=== PATIENT | female | born 1960 | race Two or more races ===

== ENCOUNTER 2020-01-27 15:55 | Inpatient (IN) | payer BC ==
[2020-01-27] MEDS ORDERED: SODIUM CHLORIDE 0.9% 1,000 ML IV STA ×2 (16:06)
[2020-01-27] MEDS ORDERED: ACETAMINOPHEN TAB 500 MG TAB PO STA (16:15)
--- NOTE | 2020-01-27 16:16 | ED ---
Chest Pain HPI - General Stated Complaint: CHEST PAIN Time Seen by Provider: 01/27/20 15:57 Source: RN notes reviewed, old records reviewed - History of Present Illness Initial Comments: Patient is a 39-year-old female who presents emergency department today for evaluation with chief complaint of chest pain starting this morning. She reports it feels a heaviness on her chest, and describes "elephant sitting on me". 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 She reports that she also noticed that over the past weekend she did have a runny nose and was feeling somewhat more short of breath. She states that she thought her no right runny nose which is related to ALLERGIES from working in the yard. She denies any significant coughing. She reports no fevers. She states that over the week she felt fatigued. She reports that she has no personal cardiac history. Patient reports that she was at work today and mentioned that she's having chest pain and was evaluated. She reports that they did an EKG which did show some abnormalities. Patient reports that she was given 2 nitro and did feel some relief with second nitro as well as 4 baby aspirin. Her blood pressure was elevated at that time 190/90. Patient states that she has had no previous stress test or cardiac workup completed. - Related Data Home Medications Medication Instructions Recorded Confirmed Cholecalciferol [Vitamin D3 (25 5,000 unit PO DAILY 01/27/20 01/27/20 Mcg = 1000 Iu)] Gabapentin [Neurontin] 300 mg PO HS 01/27/20 01/27/20 Ibuprofen [Motrin Ib] 800 mg PO Q8H PRN 01/27/20 01/27/20 Levocetirizine Dihydrochloride 5 mg PO DAILY 01/27/20 01/27/20 [Xyzal] Levothyroxine Sodium [Synthroid] 50 mcg PO DAILY 01/27/20 01/27/20 Multivitamins, Thera [Multivitamin 1 tab PO DAILY 01/27/20 01/27/20 (formulary)] hydroCHLOROthiazide [Hydrodiuril] 25 mg PO DAILY 01/27/20 01/27/20 Allergies Allergy/AdvReac Type Severity Reaction Status Date / Time acetaminophen [From Lortab] Allergy Swelling Verified 01/27/20 18:16 hydrocodone [From Vicodin] Allergy Swelling Verified 01/27/20 18:16 hydromorphone [From Dilaudid] Allergy Swelling Verified 01/27/20 18:16 Iodinated Contrast Media Allergy Anaphylaxis Verified 01/27/20 18:16 nitrofurantoin Allergy Unknown Verified 01/27/20 18:16 [From Macrobid] propoxyphene Allergy Swelling Verified 01/27/20 18:16 [From Darvocet-N] tramadol [From Ultracet] Allergy Swelling Verified 01/27/20 18:16 celecoxib [From Celebrex] AdvReac Hallucinati Verified 01/27/20 18:16 ons methyldopa [From Aldomet] AdvReac Unknown Verified 01/27/20 18:16 Review of Systems ROS Statement: Those systems with pertinent positive or pertinent negative responses have been documented in the HPI. ROS Other: All systems not noted in ROS Statement are negative. EKG Findings - EKG Comments: EKG Findings:: EKG shows normal sinus rhythm ST and T wave abnormality consider lateral ischemia. Prolonged QT. Abnormal EKG. Ventricular rate of 78 bpm. NC interval is 180 ms. QRS duration is 100 ms. QT QTc is 428/487 ms. General Exam - General Exam Comments Initial Comments: This is a very pleasant 59-year-old female. General appearance: alert, in no apparent distress Head exam: Present: atraumatic, normocephalic, normal inspection Eye exam: Present: normal appearance, PERRL, EOMI. Absent: scleral icterus, conjunctival injection, periorbital swelling ENT exam: Present: normal exam, mucous membranes moist Neck exam: Present: normal inspection. Absent: tenderness, meningismus, lymphadenopathy Respiratory exam: Present: normal lung sounds bilaterally. Absent: respiratory distress, wheezes, rales, rhonchi, stridor Cardiovascular Exam: Present: regular rate, normal rhythm, normal heart sounds. Absent: systolic murmur, diastolic murmur, rubs, gallop, clicks GI/Abdominal exam: Present: soft, normal bowel sounds. Absent: distended, tenderness, guarding, rebound, rigid Extremities exam: Present: normal inspection, full ROM, normal capillary refill. Absent: tenderness, pedal edema, joint swelling, calf tenderness Back exam: Present: normal inspection Course Vital Signs 01/27/20 01/27/20 01/27/20 16:00 17:00 17:30 Temperature 102.2 F H Pulse Rate 81 81 76 Respiratory 18 18 18 Rate Blood Pressure 141/65 141/65 138/72 O2 Sat by Pulse 97 97 96 Oximetry - Reevaluation(s) Reevaluation #1: 01/27/20 17:38 Repeat EKG performed at 1730 showed normal sinus rhythm with ventricular pressure free and repolarization abnormality. Abnormal EKG. Ventricular rate of 78 bpm. Verbal is 178 ms. QRS duration is 12 ms. QT QTC 396/451 ms. Chest Pain MDM - MDM Patient is a 59-year-old female who presents the emergency department today with complaints of chest pain and heaviness on her chest today. 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 Patient came to emergency department today with complaints of chest pain was given nitro did report minimal relief. She has not had a fever of 102 upon arrival. She reports no history of fever this week. At this time Patient had chest pain and covid work up. Chest x-ray shows borderline heart size. Patchy peripheral opacities right greater than left. Atypical/covert pneumonia not excluded. Patient had normal troponin. She did have positive inflammatory markers including positive d-dimer. With EKG there was some inversions on the lateral leads. With patient's history of chest discomfort and presumed diagnosis of covid discussed admission. Multifocal bilateral peripheral scattered heretofore ill-defined groundglass opacities associated with ill-defined interstitial indistinctness and intralobar septal thickening. Pattern in both upper and lower and mid lung zones. Involves an approximately quarter of the pulmonary parenchyma this time. No evidence or bony edema. Pleural Spaces are negative. Mediastinum shows no CT evidence for pulmonary embolism. Aorta was unremarkable. Overall impression is negative for pulmonary embolism. Bilateral pulmonary findings as described. Disposition Clinical Impression: Chest pain, Infiltrate noted on imaging study, Suspected COVID-19 virus infection Disposition: ADMITTED IP TO THIS HOSP Is patient prescribed a controlled substance at d/c from ED?: No Time of Disposition: 17:33
[2020-01-27 16:37] LABS: Basophils # (A) 0.1 k/uL (0-0.2); Basophils % (A) 1 %; Eosinophils % (A) 1 %; HCT 35.5 % (34.0-46.0); HGB 11.4 gm/dL (11.4-16.0); Lymphocytes # (A) 1.1 k/uL (1.0-4.8); Lymphocytes % (A) 25 %; MCH 28.9 pg (25.0-35.0); MCHC 32.2 g/dL (31.0-37.0); MCV 89.7 fL (80.0-100.0); Mean Platelet Volume 7.5; Monocytes # (A) 0.2 k/uL (0-1.0); Monocytes % (A) 5 %; Neutrophils # (A) 2.9 k/uL (1.3-7.7); Neutrophils % (A) 66 %; Platelet Count 134 k/uL (150-450); RBC 3.95 m/uL (3.80-5.40); WBC 4.3 k/uL (3.8-10.6)
[2020-01-27] MEDS ORDERED: MORPHINE SULFATE 2 MG/ML SYRINGE IVP ONE (16:38)
[2020-01-27] MEDS ORDERED: NITROGLYCERIN OINT 1 INCH/GM PACKET TOPICAL STA (16:38)
[2020-01-27 16:50] LABS: Albumin 3.8 g/dL (3.5-5.0); C Reactive Protein 39.8 mg/L (<10.0); Calcium 8.7 mg/dL (8.4-10.2); Magnesium 1.5 mg/dL (1.6-2.3); Potassium 3.1 mmol/L (3.5-5.1); Total Bilirubin 0.9 mg/dL (0.2-1.3); Total Protein 6.9 g/dL (6.3-8.2)
--- NOTE | 2020-01-27 16:51 | XR ---
EXAMINATION TYPE: XR chest 1V DATE OF EXAM: 01/27/2020 COMPARISON: None HISTORY: 59-year-old female chest pressure today, possible COVID TECHNIQUE: Single frontal view of the chest is obtained. FINDINGS: ACDF hardware. Heart borderline enlarged. Patchy peripheral opacities are present, right g reater than left. No sizable effusion. IMPRESSION: 1. Borderline heart size. 2. Patchy peripheral opacities, right greater than left. Atypical/COVID pneumonia not excluded.
[2020-01-27 16:52] LABS: INR 0.9 (<1.2); Partial Thromboplastin Time 23.6 sec (22.0-30.0); Prothrombin Time 9.5 sec (9.0-12.0)
[2020-01-27 17:03] LABS: D-Dimer 1.36 mg/L FEU (<0.60)
[2020-01-27] MEDS ORDERED: diphenhydrAMINE 50 MG/ML 1 ML VIAL IVP STA (17:27)
[2020-01-27] MEDS ORDERED: FAMOTIDINE 20 MG/2 ML VIAL IV STA (17:27)
[2020-01-27] MEDS ORDERED: methylPREDNISolone SOD SUCCI 125 MG/2 ML VIAL IV STA (17:27)
[2020-01-27] MEDS ORDERED: IBUPROFEN 400 MG TAB PO PRN (17:33)
[2020-01-27] MEDS ORDERED: NALOXONE 0.4 MG/ML 1 ML VIAL IV PRN (17:33)
[2020-01-27] MEDS ORDERED: ACETAMINOPHEN TAB 325 MG TAB PO PRN (17:33)
[2020-01-27] MEDS ORDERED: KETOROLAC 15 MG/ML 1 ML VIAL IVP PRN (17:33)
[2020-01-27] MEDS ORDERED: MORPHINE SULFATE 4 MG/ML SYRINGE IV PRN (17:33)
--- NOTE | 2020-01-27 18:27 | CT ---
EXAMINATION TYPE: CT chest angio for PE with contrast and with 3-D reconstruction renderings DATE OF EXAM: 01/27/2020 COMPARISON: None HISTORY: Shortness of breath since February 2019, chest pain today CT DLP: 854.5 mGycm Automated exposure control for dose reduction was used. CONTRAST: CT Chest for pulmonary embolism performed with with IV Contrast, patient injected with 100 mL of Isovue 370. FINDINGS: AIRWAYS: Unremarkable. LUNGS: However, there are multifocal bilateral peripheral scattered ill-defined groundglass opacities associated with ill-defined interstitial indistinctness and intralobular septal thickening. Pattern involves upper, mid, and lower lung zones, and involves approximately a quarter of the pulmonary pare nchyma at the present time. There is no evidence of pulmonary edema. PLEURAL SPACES: Negative. MEDIASTINUM: There is satisfactory enhancement of the pulmonary artery and its branches, with no CT e vidence for pulmonary embolism. The aorta is unremarkable. There is no cardiomegaly or pericardial e ffusion. No mediastinal or hilar adenopathy. OTHER: No additional significant abnormality is seen. IMPRESSION: 1. Negative for pulmonary embolism. 2. Bilateral pulmonary findings as detailed.
[2020-01-27] MEDS ORDERED: ALBUTEROL HFA INHALER INHALATION STA (18:36)
[2020-01-27] MEDS: SODIUM CHLORIDE 0.9% 1,000 ML IV SCH (18:53)
[2020-01-27] MEDS: GABAPENTIN 300 MG CAP PO SCH (20:44)
[2020-01-28 01:35] LABS: Ferritin 221.6 ng/mL (10.0-291.0)
[2020-01-28] MEDS: LEVOTHYROXINE 50 MCG TAB PO SCH (06:34)
[2020-01-28] MEDS: SODIUM CHLORIDE 0.9% 1,000 ML IV SCH ×2 (06:35→13:37)
[2020-01-28] MEDS: MULTIVITAMINS, THERA 1 EACH TAB PO SCH (08:36)
[2020-01-28] MEDS: LORATADINE 10 MG TAB PO SCH (08:36)
[2020-01-28] MEDS: ENOXAPARIN 40 MG/0.4 ML SYRINGE SQ SCH (08:36)
[2020-01-28] MEDS: CHOLECALCIFEROL 1,000 UNIT TAB PO SCH (08:36)
[2020-01-28] MEDS: hydroCHLOROthiazide 25 MG TAB PO SCH (08:37)
[2020-01-28] MEDS: IBUPROFEN 800 MG TAB PO PRN ×2 (08:53→20:46)
--- NOTE | 2020-01-28 11:37 | CONS ---
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 Developed shortness of breath, cough and chest discomfort at home. She describes her chest tightness as a sharp pericardial mild to moderate intensity at rest that improved with coughing. She went to work as she felt better, had similar symptoms at work. Due to worsening symptoms, EMS was called and she was sent to the hospital. An EKG shows sinus rhythm with a anterolateral ST-T wave changes. CT scan of the chest is negative for pulmonary embolism, but has multifocal ground-glass opacities consistent with a diagnosis of Covid and Covid testing is pending. Even though she works in a healthcare facility, she states that she does not come into contact with patients. She lives with her and does not really have much social interactions. She has been tested for Covid several times over the last 6 months and has come back negative. The patient has history of shortness of breath and went to the hospital at [facility] back in March and apparently underwent an echocardiogram and was told that everything looked normal. She really did not have a stress test and she has had shortness of breath on and off since and her shortness of breath can be at rest and with activity and with very minimal activity and she does not have shortness of breath when she is doing significant exertion at times. There is no consistent pattern. She has already had 3 sets of troponins on this admission. They have all been negative and her labs showed that D-dimer is elevated. Her liver enzymes are up. C-reactive protein is up. Procalcitonin is up. Raising the possibility of Covid infection. PAST MEDICAL HISTORY: Significant for hypertension and hypothyroidism. MEDICATIONS: Include HydroDIURIL, Synthroid, Motrin, Neurontin. ALLERGIES: SHE HAS MULTIPLE ALLERGIES, they are charted and reviewed them. FAMILY HISTORY: Negative for premature coronary artery disease. SOCIAL HISTORY: Negative for current smoking, EtOH abuse, or drug abuse. REVIEW OF SYSTEMS: HEENT is unremarkable. CARDIAC: As described above. RESPIRATORY: As described above. GI negative. GENITOURINARY negative. SKIN: Negative. ALLERGY/IMMUNOLOGY: Negative. MUSCULOSKELETAL: Significant for arthritis. PSYCHOSOCIAL negative. ENDOCRINE: Negative. DERM: Negative. CONSTITUTIONAL significant for fatigue and tiredness. Rest of the system review is not relevant. EXAM: I have done a tele health on this patient given the concerns about Covid virus. I spoke to the patient over the phone and reviewed health physical exam findings with the nurse and what has been documented by the emergency room physician Dr. Jesus. The patient's vital signs appear stable. She is afebrile. Heart rate is 60 beats per minute. Blood pressure is 140/62. Respiratory rate is 18. LAB: Show that the hemoglobin is 11.4, white cell count is 4.3, platelet count is low. Potassium is 3.1, creatinine is 0.9. Tropes are negative. AST, ALT are elevated. ASSESSMENT: 1. Precordial chest pain, sharp, atypical, probably noncardiac. 2. Abnormal EKG. Myocardial infarction ruled out. 3. Suspected Covid infection. PLAN: I will obtain a 2D echo to evaluate his LV function and wall motion. Obtain old EKGs from her prior hospitalization and if she has any in her physician's office and once her respiratory issues resolve and Covid is either ruled in or ruled out, we can consider doing a stress test on her. FRANCESL / IJN: [id number] /
[2020-01-28] MEDS ORDERED: POTASSIUM CHLORIDE ER 20 MEQ TAB.ER PO STA (13:20)
[2020-01-28] MEDS: MAGNESIUM OXIDE 400 MG TAB PO SCH ×2 (13:36→20:44)
[2020-01-28] MEDS: AZITHROMYCIN 500 MG TAB PO SCH (13:36)
--- NOTE | 2020-01-28 17:24 | P.CNPUL ---
History of Present Illness Consult date: 01/28/20 Requesting physician: Christopher Burleson Reason for consult: dyspnea, chest pain Chief complaint: Chronic shortness of breath and chest discomfort History of present illness: This is a 59-year-old female primarily a patient of Dr. 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 Patient is known to have history of chronic shortness of breath since February, and previous workup has been basically unremarkable. No previous CT of the chest done in the past, patient developed yesterday symptoms of substernal chest discomfort, she was also complaining of shortness of breath slightly worse compared to baseline. While at work, patient had an EKG, and it showed sinus rhythm with anterolateral ST and T wave changes. Dr. Leal was concerned about her abnormal EKG, and she was sent to [facility] for further evaluation. Indeed her EKG is abnormal, and CT of the chest showed no evidence of pulmonary embolism but it did show multifocal groundglass opacities, and fibrotic changes noted at the bases of her lungs bilaterally. Considering the multifocal groundglass opacities, the possibility of Covid 19 pneumonitis was raised, and the patient was admitted, being tested for roman virus pneumonitis. PCR is pending. Patient was noted to have relatively normal CBC. Lymphocytes were normal. Platelets were on the lower end of normal. Basic metabolic profile was normal. Her LDH was noted to be elevated at 850 and C-reactive protein 39.8. Troponins were negative. Pro- calcitonin level was basically normal 0.10 not suggestive of bacterial pneumonia. Considering her abnormal CT of the chest, I was asked to see this patient on consultation. Review of Systems Constitutional: Negative HEENT: Negative. Pulmonary: As noted in HPI. Cardiac: As noted in HPI. GI: Negative Genitourinary: Negative Musculoskeletal: Negative Hematologic: Negative Psychiatric: Negative Neurologic: Negative Skin: Negative Endocrine: Past Medical History Past Medical History: Hypertension, Osteoarthritis (OA), Pneumonia, Thyroid Disorder Additional Past Medical History / Comment(s): Kidney stones, Hypertension during , vit. D deficiency History of Any Multi-Drug Resistant Organisms: None Reported Past Surgical History: Adenoidectomy, Appendectomy, Back Surgery, Bladder Surgery, Cholecystectomy, Ear Surgery, Hysterectomy, Orthopedic Surgery, Tonsillectomy Additional Past Surgical History / Comment(s): Knee replacement (2019), fusion of c5-c7,chiari malformation repair (2007), two c-sections, cystoctopy, lithotripsy, jaw surgery Past Anesthesia/Blood Transfusion Reactions: Previous Problems w/ Anesthesia Additional Past Anesthesia/Blood Transfusion Reaction / Comment(s): Pt states she vomited for 12 hours after anesthesia Past Psychological History: No Psychological Hx Reported Smoking Status: Never smoker Past Alcohol Use History: Occasional Past Drug Use History: None Reported - Past Family History Father Family Medical History: Cancer, COPD Additional Family Medical History / Comment(s): pancreatic cancer Mother Family Medical History: Cancer Additional Family Medical History / Comment(s): Lung cancer Brother(s) Family Medical History: Cancer, Hypertension, Osteoarthritis (OA) Sister(s) Family Medical History: Mitral Valve Prolapse (MVP), Osteoarthritis (OA) Additional Family Medical History / Comment(s): manic depression Medications and Allergies Home Medications Medication Instructions Recorded Confirmed Type Cholecalciferol [Vitamin D3 (25 5,000 unit PO DAILY 01/27/20 01/27/20 History Mcg = 1000 Iu)] Gabapentin [Neurontin] 300 mg PO HS 01/27/20 01/27/20 History Ibuprofen [Motrin Ib] 800 mg PO Q8H PRN 01/27/20 01/27/20 History Levocetirizine Dihydrochloride 5 mg PO DAILY 01/27/20 01/27/20 History [Xyzal] Levothyroxine Sodium [Synthroid] 50 mcg PO DAILY 01/27/20 01/27/20 History Multivitamins, Thera [Multivitamin 1 tab PO DAILY 01/27/20 01/27/20 History (formulary)] hydroCHLOROthiazide [Hydrodiuril] 25 mg PO DAILY 01/27/20 01/27/20 History Allergies Allergy/AdvReac Type Severity Reaction Status Date / Time acetaminophen [From Lortab] Allergy Swelling Verified 01/27/20 18:16 hydrocodone [From Vicodin] Allergy Swelling Verified 01/27/20 18:16 hydromorphone [From Dilaudid] Allergy Swelling Verified 01/27/20 18:16 Iodinated Contrast Media Allergy Anaphylaxis Verified 01/27/20 18:16 nitrofurantoin Allergy Unknown Verified 01/27/20 18:16 [From Macrobid] propoxyphene Allergy Swelling Verified 01/27/20 18:16 [From Darvocet-N] tramadol [From Ultracet] Allergy Swelling Verified 01/27/20 18:16 celecoxib [From Celebrex] AdvReac Hallucinati Verified 01/27/20 18:16 ons methyldopa [From Aldomet] AdvReac Unknown Verified 01/27/20 18:16 Physical Exam Vitals: Vital Signs Temp Pulse Pulse Resp BP BP Pulse Ox 01/28/20 16:00 97.9 F 55 L 18 122/66 98 01/28/20 12:00 98.2 F 18 133/71 97 01/28/20 08:00 98.6 F 59 L 18 125/61 95 01/28/20 04:06 97.3 F L 57 L 12 146/69 94 L 01/28/20 03:54 97.3 F L 61 16 146/69 95 01/27/20 23:20 98.5 F 70 16 121/57 93 L 01/27/20 20:50 117/58 01/27/20 20:00 100.6 F H 73 16 97/50 95 01/27/20 18:30 99.3 F 72 18 138/72 97 01/27/20 17:30 76 18 138/72 96 Intake and Output 01/28/20 01/28/20 01/28/20 06:59 14:59 22:59 Intake Total 1040 120 Balance 1040 120 Intake: Intake, IV Titration 800 Amount Sodium Chloride 0.9% 1, 800 000 ml @ 100 mls/hr IV . Q10H [facility] Rx#:[id number] Oral 240 120 Other: Voiding Method Toilet # Voids 3 1 Weight 110.677 kg Physical Exam: Revealed 59-year-old female in no distress. Head: Atraumatic, normocephalic. HEENT:[Neck is supple.] [No neck masses.] [No thyromegaly.] [No JVD.] Chest: [Symmetrical chest expansion, minimal fine crackles at the bases. No rhonchi and no wheezes. Cardiac Exam: [Normal S1 and S2, no S3 gallop, no murmur.] Abdomen: [Soft, nontender, no megaly, no rebound, no guarding, normal bowel sounds.] Extremities: [No clubbing, no edema, no cyanosis.] Neurological Exam: [No focal neurologic deficit.] Alert oriented 3. Psychiatric: Normal mood affect and normal mental status examination. Skin: No rashes. Results - Laboratory Findings CBC and BMP: 01/27/20 16:21 01/27/20 16:21 PT/INR, D-dimer PT 9.5 sec (9.0-12.0) 01/27/20 16:21 INR 0.9 (<1.2) 01/27/20 16:21 D-Dimer 1.36 mg/L FEU (<0.60) H 01/27/20 16:21 Abnormal lab findings: Abnormal Labs 01/27/20 01/27/20 01/27/20 16:21 16:21 16:21 Plt Count 134 L D-Dimer 1.36 H Potassium 3.1 L Chloride 96 L Carbon Dioxide 35 H BUN 22 H Glucose 110 H Magnesium 1.5 L AST 55 H ALT 41 H Lactate Dehydrogenase 850 H C-Reactive Protein 39.8 H Procalcitonin 01/27/20 16:21 Plt Count D-Dimer Potassium Chloride Carbon Dioxide BUN Glucose Magnesium AST ALT Lactate Dehydrogenase C-Reactive Protein Procalcitonin 0.10 H - Diagnostic Findings CT scan - chest: image reviewed (CT of the chest was reviewed, it clearly shows multifocal bilateral peripheral ill-defined groundglass opacities, and there is also some intralobular septal thickening, suspicious for underlying interstitial lung disease.) Assessment and Plan Assessment: Impression: Abnormal CT of the chest suggestive of possible covid 19 pneumonitis with underlying interstitial lung disease. Chest pain, likely cardiac in nature however that is being addressed by cardiology on consultation. Patient may eventually require further cardiac wo rkup Abnormal EKG suggestive of underlying coronary artery disease and ischemic changes. Chronic shortness of breath with abnormal CT of the chest, patient may have interstitial lung disease, and that is to be evaluated on outpatient basis. Recommendation: Continue present supportive care measures. Cardiology to continue to follow regarding her abnormal EKG and her abnormal presentation. Await the PCR on her covid 19, patient does not need to be on any treatment, except considering Zithromax for now We will continue to follow. Time with Patient: Greater than 30
--- NOTE | 2020-01-28 18:15 | ECHOF ---
Referral Reason:chest pain; dyspnea MEASUREMENTS -------- HEIGHT: 165.1 cm WEIGHT: 111.1 kg BP: RVIDd: 3.2 cm (< 3.3) IVSd: 1.0 cm (0.6 - 1.1) LVIDd: 5.7 cm (3.9 - 5.3) LVPWd: 1.0 cm (0.6 - 1.1) LA Diam: 4.2 cm (2.7 - 3.8) LAESV Index (A-L): 18.71 ml/m Ao Diam: 2.7 cm (2.0 - 3.7) AV Cusp: 2.1 cm (1.5 - 2.6) LA Diam: 3.5 cm (2.7 - 3.8) MV EXCURSION: 14.598 mm (> 18.000) MV EF SLOPE: 99 mm/s (70 - 150) EPSS: 0.6 cm MV E Jose M: 0.90 m/s MV DecT: 182 ms MV A Jose M: 0.81 m/s MV E/A Ratio: 1.11 RAP: 5.00 mmHg RVSP: 12.89 mmHg FINDINGS -------- Sinus rhythm. This was a technically adequate study. LV size, wall thickness and systolic function are normal, with an EF greater than 55%. The left chana tricular size is normal. The right ventricle is normal in size. The left atrial size is normal. Normal LA size by volume 22+/-6 ml/m2. The right atrial size is normal. The aortic valve is trileaflet, and appears structurally normal. No aortic stenosis or regurgitation. Mild mitral regurgitation is present. Mild tricuspid regurgitation present. Right ventricular systolic pressure is normal at < 35 mmHg. There is no pulmonic regurgitation present. The aortic root size is normal. There is no pericardial effusion. CONCLUSIONS -------- 1. LV size, wall thickness and systolic function are normal, with an EF greater than 55%. 2. The left ventricular size is normal. 3. The right ventricle is normal in size. 4. The left atrial size is normal. 5. Normal LA size by volume 22+/-6 ml/m2. 6. The right atrial size is normal. 7. Mild mitral regurgitation is present. 8. Mild tricuspid regurgitation present. 9. There is no pulmonic regurgitation present. 10. The aortic root size is normal. 11. There is no pericardial effusion. SCRAPE GATHERER: Fawn San RDCS
--- NOTE | 2020-01-28 20:19 | P.HPIM ---
History of Present Illness H&P Date: 01/28/20 Chief Complaint: Chest pain History of presenting complaint: This is a pleasant 59-year-old patient who follows with Dr. Huizar. Chronic stable medical conditions include hypertension in , vitamin D deficiency, hypothyroid, osteoarthritis. Has had a prior she artery malformation repair in 2007. Yesterday morning patient felt a sensation of elephant sitting of the chest. It felt a bit better. Improved. She went on to go to work. Around 2:00 symptoms came back. And she felt totally tired. No dizziness, lightheadedness no perspiration. Pain did go to her shoulder blades into the back. No fever and chills. She was at work and EKG was done at the doctor's office found her changes and she was sent down here. Patient has been feeling short of breath since February. And has had at least 4-5 cover testing all being negative. No change in smell or taste. Review of systems: GEN.: Tired EYES: None HEENT: None NECK: None RESPIRATORY: Baseline some shortness of breath CARDIOVASCULAR: As above GASTROINTESTINAL: None GENITOURINARY: None MUSCULOSKELETAL: Joint pains LYMPHATICS: None HEMATOLOGICAL: None PSYCHIATRY: None NEUROLOGICAL: None Past medical history to include: Hypertension of , vitamin D deficiency, hypothyroid, osteoarthritis, bud-chiari malformation surgery. Social history: No smoking. Alcohol occasionally. 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 . Physical examination: VITAL SIGNS: 100.6, 73, 16, 97/50, 95% on 2 L GENERAL: BMI 40.6, sitting on bed, comfortable. EYES: Pupils equal. Conjunctiva normal. HEENT: External appearance of nose and ears normal, oral cavity grossly normal. NECK: JVD not raised; masses not palpable. HEART: First and second heart sounds are normal; no edema. LUNGS: Respiratory rate normal; clear to auscultation. ABDOMEN: Soft, nontender, liver spleen not palpable, no masses palpable. PSYCH: Alert and oriented x3; mood and affect normal. MUSCULAR skeletal: Questionable early findings of OA NEUROLOGICAL: Cranial nerves grossly intact; no facial asymmetry, power and sensation grossly intact. LYMPHATICS: No lymph nodes palpable in the axilla and neck INVESTIGATIONS, reviewed in the clinical context: White count 4.3 hemoglobin 11.4 platelets 134 potassium 3.1 creatinine 0.98 LDH 850 CRP 39.8 pro-calcitonin 0.1 Troponin I 3 negative EKG tracing personally reviewed by me-sinus rhythm, ST segment depression in lead V2 through V6 with LVH changes Computed tomography scan of the chest-multifocal bilateral peripheral schedule ill-defined groundglass the bases. Chest x-ray film personally reviewed by me-some peripheral infiltrates 2-D echocardiogram-EF 55% Assessment: -This is a patient presents with elephant sitting on her chest with some EKG findings. Cardiac risk factors include hypertension, hypothyroid, postmenopausal. Patient will need a stress test. No wall motion on no medication to 2-D echocardiogram. -Patient did not complete a full fever but did have a temperature 100.6 on presentation. Has had this at least 5 COVID 19 testing an outpatient, all being negative. This makes it less likely but cannot entirely rule out the same. Given the computed tomography scan findings and the supportive lab findings -Primary osteoarthritis -Hypothyroid -Morbid obesity BMI 40.6 Plan: Home medications resumed. Cardiology and pulmonary was consulted. Agree with Dr. Sorto starting the Zithromax for atypical pneumonia. Patient will need to be worked of other causes of her computed tomography scan of the chest if COVID 19 PCR comes back negative. In any case given her pulse ox is good present time no further treatment to be done. Discussed with the patient. Patient will need a stress test. Past Medical History Past Medical History: Hypertension, Osteoarthritis (OA), Pneumonia, Thyroid Disorder Additional Past Medical History / Comment(s): Kidney stones, Hypertension during , vit. D deficiency History of Any Multi-Drug Resistant Organisms: None Reported Past Surgical History: Adenoidectomy, Appendectomy, Back Surgery, Bladder Surgery, Cholecystectomy, Ear Surgery, Hysterectomy, Orthopedic Surgery, Tonsillectomy Additional Past Surgical History / Comment(s): Knee replacement (2019), fusion of c5-c7,chiari malformation repair (2007), two c-sections, cystoctopy, lit hotripsy, jaw surgery Past Anesthesia/Blood Transfusion Reactions: Previous Problems w/ Anesthesia Additional Past Anesthesia/Blood Transfusion Reaction / Comment(s): Pt states she vomited for 12 hours after anesthesia Past Psychological History: No Psychological Hx Reported Smoking Status: Never smoker Past Alcohol Use History: Occasional Past Drug Use History: None Reported - Past Family History Father Family Medical History: Cancer, COPD Additional Family Medical History / Comment(s): pancreatic cancer Mother Family Medical History: Cancer Additional Family Medical History / Comment(s): Lung cancer Brother(s) Family Medical History: Cancer, Hypertension, Osteoarthritis (OA) Sister(s) Family Medical History: Mitral Valve Prolapse (MVP), Osteoarthritis (OA) Additional Family Medical History / Comment(s): manic depression Medications and Allergies Home Medications Medication Instructions Recorded Confirmed Type Cholecalciferol [Vitamin D3 (25 5,000 unit PO DAILY 01/27/20 01/27/20 History Mcg = 1000 Iu)] Gabapentin [Neurontin] 300 mg PO HS 01/27/20 01/27/20 History Ibuprofen [Motrin Ib] 800 mg PO Q8H PRN 01/27/20 01/27/20 History Levocetirizine Dihydrochloride 5 mg PO DAILY 01/27/20 01/27/20 History [Xyzal] Levothyroxine Sodium [Synthroid] 50 mcg PO DAILY 01/27/20 01/27/20 History Multivitamins, Thera [Multivitamin 1 tab PO DAILY 01/27/20 01/27/20 History (formulary)] hydroCHLOROthiazide [Hydrodiuril] 25 mg PO DAILY 01/27/20 01/27/20 History Allergies Allergy/AdvReac Type Severity Reaction Status Date / Time acetaminophen [From Lortab] Allergy Swelling Verified 01/27/20 18:16 hydrocodone [From Vicodin] Allergy Swelling Verified 01/27/20 18:16 hydromorphone [From Dilaudid] Allergy Swelling Verified 01/27/20 18:16 Iodinated Contrast Media Allergy Anaphylaxis Verified 01/27/20 18:16 nitrofurantoin Allergy Unknown Verified 01/27/20 18:16 [From Macrobid] propoxyphene Allergy Swelling Verified 01/27/20 18:16 [From Darvocet-N] tramadol [From Ultracet] Allergy Swelling Verified 01/27/20 18:16 celecoxib [From Celebrex] AdvReac Hallucinati Verified 01/27/20 18:16 ons methyldopa [From Aldomet] AdvReac Unknown Verified 01/27/20 18:16 Physical Exam Vitals: Vital Signs Temp Pulse Pulse Resp BP BP Pulse Ox 01/28/20 08:00 98.6 F 59 L 18 125/61 95 01/28/20 04:06 97.3 F L 57 L 12 146/69 94 L 01/28/20 03:54 97.3 F L 61 16 146/69 95 01/27/20 23:20 98.5 F 70 16 121/57 93 L 01/27/20 20:50 117/58 01/27/20 20:00 100.6 F H 73 16 97/50 95 01/27/20 18:30 99.3 F 72 18 138/72 97 01/27/20 17:30 76 18 138/72 96 01/27/20 17:00 81 18 141/65 97 01/27/20 16:00 102.2 F H 81 18 141/65 97 Intake and Output 01/27/20 01/28/20 01/28/20 22:59 06:59 14:59 Intake Total 1040 Balance 1040 Intake: Intake, IV Titration 800 Amount Sodium Chloride 0.9% 1, 800 000 ml @ 100 mls/hr IV . Q10H [facility] Rx#:[id number] Oral 240 Other: Voiding Method Toilet Toilet # Voids 3 1 Weight 110.677 kg 110.677 kg Results CBC & Chem 7: 01/27/20 16:21 01/27/20 16:21 Labs: Abnormal Lab Results - Last 24 Hours (Table) 01/27/20 01/27/20 01/27/20 Range/Units 16:21 16:21 16:21 Plt Count 134 L (150-450) k/uL D-Dimer 1.36 H (<0.60) mg/L FEU Potassium 3.1 L (3.5-5.1) mmol/L Chloride 96 L (98-107) mmol/L Carbon Dioxide 35 H (22-30) mmol/L BUN 22 H (7-17) mg/dL Glucose 110 H (74-99) mg/dL Magnesium 1.5 L (1.6-2.3) mg/dL AST 55 H (14-36) U/L ALT 41 H (4-34) U/L Lactate Dehydrogenase 850 H (313-618) U/L C-Reactive Protein 39.8 H (<10.0) mg/L Procalcitonin (0.02-0.09) ng/mL 11/05/20 Range/Units 16:21 Plt Count (150-450) k/uL D-Dimer (<0.60) mg/L FEU Potassium (3.5-5.1) mmol/L Chloride (98-107) mmol/L Carbon Dioxide (22-30) mmol/L BUN (7-17) mg/dL Glucose (74-99) mg/dL Magnesium (1.6-2.3) mg/dL AST (14-36) U/L ALT (4-34) U/L Lactate Dehydrogenase (313-618) U/L C-Reactive Protein (<10.0) mg/L Procalcitonin 0.10 H (0.02-0.09) ng/mL Thrombosis Risk Factor Assmnt - Choose All That Apply Any of the Below Risk Factors Present?: Yes Each Factor Represents 1 point: Age 41-60 years, Obesity (BMI >25) Other Risk Factors: No Other congenital or acquired thrombophilia - If yes, enter type in comment: No Thrombosis Risk Factor Assessment Total Risk Factor Score: 2 Thrombosis Risk Factor Assessment Level: Low Risk
[2020-01-28] MEDS: GABAPENTIN 300 MG CAP PO SCH (20:44)
--- NOTE | 2020-01-28 22:59 | P.CONS ---
History of Present Illness - Reason for Consult Consult date: 01/28/20 Presumed Covid Requesting physician: Christopher Burleson - Chief Complaint Chest pain and shortness of breath x one day - History of Present Illness Patient is a 59-year-old female presenting to the area with chest pressure of 1 day duration, patient apparently mentioned she has been problem with increasing shortness of breath since February 2019 and apparently did have a VQ scan done at [facility] that was negative. No recall if she has any CT of the chest, on the day of presentation to the hospital with the patient complaining of chest pressure like somebody is sitting on her chest with associated shortness of breath patient did have EKG done at the office she was noticed to have some EKG changes subsequently the patient was sent to [facility] for further workup, on arrival to the [facility] have a fever of 102.2F, the patient did not have any tachycardia or hypoxemia patient did have a normal white count with no lymphopenia, d-dimer was slightly elevated 1.36, liver enzymes mildly elevated and did have elevated CRP and pro-calcitonin, tro ponin has been negative, patient did have a chest x-ray borderline heart size, PT peripheral opacities right greater than left, seated gram of the chest was negative for PE tissues bilateral multifocal peripheral scattered ill-defined groundglass opacities, infectious disease was consulted with concern for possible Covid 19 infection, the time of evaluation patient denies having any fever or any chills, the patient's pressure has resolved she's complaining of shortness of breath and did have a cough which is moderate in intensity not bringing up any sputum no nausea no vomiting no blood work and no diarrhea and no change in her sense of smell or taste Review of Systems Positive point has been mentioned in the HPI rest of the systems are negative Past Medical History Past Medical History: Hypertension, Osteoarthritis (OA), Pneumonia, Thyroid Disorder Additional Past Medical History / Comment(s): Kidney stones, Hypertension during , vit. D deficiency History of Any Multi-Drug Resistant Organisms: None Reported Past Surgical History: Adenoidectomy, Appendectomy, Back Surgery, Bladder Surgery, Cholecystectomy, Ear Surgery, Hysterectomy, Orthopedic Surgery, Tonsillectomy Additional Past Surgical History / Comment(s): Knee replacement (2019), fusion of c5-c7,chiari malformation repair (2007), two c-sections, cystoctopy, lithotripsy, jaw surgery Past Anesthesia/Blood Transfusion Reactions: Previous Problems w/ Anesthesia Additional Past Anesthesia/Blood Transfusion Reaction / Comm: Pt states she vomited for 12 hours after anesthesia Past Psychological History: No Psychological Hx Reported Smoking Status: Never smoker Past Alcohol Use History: Occasional Past Drug Use History: None Reported - Past Family History Father Family Medical History: Cancer, COPD Additional Family Medical History / Comment(s): pancreatic cancer Mother Family Medical History: Cancer Additional Family Medical History / Comment(s): Lung cancer Brother(s) Family Medical History: Cancer, Hypertension, Osteoarthritis (OA) Sister(s) Family Medical History: Mitral Valve Prolapse (MVP), Osteoarthritis (OA) Additional Family Medical History / Comment(s): manic depression Medications and Allergies Home Medications Medication Instructions Recorded Confirmed Type Cholecalciferol [Vitamin D3 (25 5,000 unit PO DAILY 01/27/20 01/27/20 History Mcg = 1000 Iu)] Gabapentin [Neurontin] 300 mg PO HS 01/27/20 01/27/20 History Ibuprofen [Motrin Ib] 800 mg PO Q8H PRN 01/27/20 01/27/20 History Levocetirizine Dihydrochloride 5 mg PO DAILY 01/27/20 01/27/20 History [Xyzal] Levothyroxine Sodium [Synthroid] 50 mcg PO DAILY 01/27/20 01/27/20 History Multivitamins, Thera [Multivitamin 1 tab PO DAILY 01/27/20 01/27/20 History (formulary)] hydroCHLOROthiazide [Hydrodiuril] 25 mg PO DAILY 01/27/20 01/27/20 History Allergies Allergy/AdvReac Type Severity Reaction Status Date / Time acetaminophen [From Lortab] Allergy Swelling Verified 01/27/20 18:16 hydrocodone [From Vicodin] Allergy Swelling Verified 01/27/20 18:16 hydromorphone [From Dilaudid] Allergy Swelling Verified 01/27/20 18:16 Iodinated Contrast Media Allergy Anaphylaxis Verified 01/27/20 18:16 nitrofurantoin Allergy Unknown Verified 01/27/20 18:16 [From Macrobid] propoxyphene Allergy Swelling Verified 01/27/20 18:16 [From Darvocet-N] tramadol [From Ultracet] Allergy Swelling Verified 01/27/20 18:16 celecoxib [From Celebrex] AdvReac Hallucinati Verified 01/27/20 18:16 ons methyldopa [From Aldomet] AdvReac Unknown Verified 01/27/20 18:16 Physical Exam Vitals: Vital Signs Temp Pulse Resp BP Pulse Ox 01/28/20 20:00 98.3 F 72 18 134/78 99 01/28/20 16:00 97.9 F 55 L 18 122/66 98 01/28/20 12:00 98.2 F 18 133/71 97 01/28/20 08:00 98.6 F 59 L 18 125/61 95 01/28/20 04:06 97.3 F L 57 L 12 146/69 94 L 01/28/20 03:54 97.3 F L 61 16 146/69 95 01/27/20 23:20 98.5 F 70 16 121/57 93 L Intake and Output 01/28/20 01/28/20 01/28/20 06:59 14:59 22:59 Intake Total 1040 120 Balance 1040 120 Intake: Intake, IV Titration 800 Amount Sodium Chloride 0.9% 1, 800 000 ml @ 100 mls/hr IV . Q10H [facility] Rx#:[id number] Oral 240 120 Other: Voiding Method Toilet # Voids 3 1 2 Weight 110.677 kg GENERAL DESCRIPTION: Middle-aged female lying in bed, no distress. No tachypnea or accessory muscle of respiration use. HEENT: Shows Pallor , no scleral icterus. Oral mucous membrane is dry. No pharyngeal erythema or thrush NECK: Trachea central, no thyromegaly. LUNGS: Unlabored breathing. Clear to auscultation anteriorly. No wheeze or crackle. HEART: S1, S2, regular rate and rhythm. No loud murmur ABDOMEN: Soft, no tenderness , guarding or rigidity, no organomegaly EXTREMITIES: No edema of feet. SKIN: No rash, no masses palpable. NEUROLOGICAL: The patient is awake, alert, oriented x3, mood and affect normal. Results CBC & Chem 7: 01/27/20 16:21 01/27/20 16:21 Labs: Abnormal Lab Results - Last 24 Hours (Table) 01/27/20 Range/Units 16:21 Procalcitonin 0.10 H (0.02-0.09) ng/mL Assessment and Plan Assessment: 1- patient is a 59 year female presented to the hospital with chest pain and increasing shortness of breath this patient who did have a fever on presentation to the hospital did not have any elevated white count or lymphopenia however did have elevated CRP and LFT as well as pro-calcitonin and a CT angiogram which shows bilateral multifocal infiltrate with concern for possible atypical bacterial versus viral pneumonia, with clinical concern high for Covid 19 infection (1) Atypical pneumonia Current Visit: Yes Status: Acute Code(s): J18.9 - PNEUMONIA, UNSPECIFIED ORGANISM SNOMED Code(s): 426227478 (2) Suspected COVID-19 virus infection Current Visit: Yes Status: Acute Code(s): Z20.828 - CONTACT W AND EXPOSURE TO OTH VIRAL COMMUNICABLE DISEASES SNOMED Code(s): 153539273 Plan: 1- await nasopharyngeal swab for Covid 19 2- check urine for Legionella antigen 3- Zithromax 500 mg daily along with Lovenox to continue for now 4- droplet isolation and respiratory support We will follow on clinical condition and cultures to further adjust medication if needed Thank you for this consultation will follow this patient with you
[2020-01-29] MEDS: SODIUM CHLORIDE 0.9% 1,000 ML IV SCH ×2 (06:22→13:25)
[2020-01-29] MEDS: LEVOTHYROXINE 50 MCG TAB PO SCH (06:28)
[2020-01-29 08:16] LABS: C Reactive Protein 31.9 mg/L (<10.0)
[2020-01-29] MEDS: hydroCHLOROthiazide 25 MG TAB PO SCH (09:28)
[2020-01-29] MEDS: LORATADINE 10 MG TAB PO SCH (09:28)
[2020-01-29] MEDS: MAGNESIUM OXIDE 400 MG TAB PO SCH ×3 (09:29→21:23)
[2020-01-29] MEDS: MULTIVITAMINS, THERA 1 EACH TAB PO SCH (09:29)
[2020-01-29] MEDS: ENOXAPARIN 40 MG/0.4 ML SYRINGE SQ SCH (09:29)
[2020-01-29] MEDS: CHOLECALCIFEROL 1,000 UNIT TAB PO SCH (09:35)
[2020-01-29] MEDS: IBUPROFEN 800 MG TAB PO PRN ×2 (09:58→21:23)
[2020-01-29] MEDS: AZITHROMYCIN 500 MG TAB PO SCH (13:25)
--- NOTE | 2020-01-29 14:40 | P.PN ---
Subjective Progress Note Date: 01/29/20 Principal diagnosis: Possible covid 19 pneumonitis. This is a 59-year-old female primarily a patient of Dr. 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 Patient is known to have history of chronic shortness of breath since February, and previous workup has been basically unremarkable. No previous CT of the chest done in the past, patient developed yesterday symptoms of substernal chest discomfort, she was also complaining of shortness of breath slightly worse compared to baseline. While at work, patient had an EKG, and it showed sinus rhythm with anterolateral ST and T wave changes. Dr. Leal was concerned about her abnormal EKG, and she was sent to [facility] for further evaluation. Indeed her EKG is abnormal, and CT of the chest showed no evidence of pulmonary embolism but it did show multifocal groundglass opacities, and fibrotic changes noted at the bases of her lungs bilaterally. Considering the multifocal groundglass opacities, the possibility of Covid 19 pneumonitis was raised, and the patient was admitted, being tested for roman virus pneumonitis. PCR is pending. Patient was noted to have relatively normal CBC. Lymphocytes were normal. Platelets were on the lower end of normal. Basic metabolic profile was normal. Her LDH was noted to be elevated at 850 and C-reactive protein 39.8. Troponins were negative. Pro- calcitonin level was basically normal 0.10 not suggestive of bacterial pneumonia. Considering her abnormal CT of the chest, I was asked to see this patient on consultation. Patient was reevaluated today on 01/29/20, patient is feeling much better today, denies any cough no wheezing no shortness of breath no chest pain. Her PCR for roman virus is pending. Clinically however the patient is feeling great, relatively asymptomatic, and wondering if she could be discharged home. From my perspective the patient could be discharged home on oral antibiotics, and follow up with her primary care physician. However the patient will need to be cleared for discharge by cardiology since her presentation was mostly a cardiac presentation than a pulmonary presentation. Objective - Vital Signs Vital signs: Vital Signs Temp 98.8 F 01/29/20 12:00 Pulse 67 01/29/20 12:00 Resp 18 01/29/20 12:00 BP 126/69 01/29/20 12:00 Pulse Ox 93 L 01/29/20 12:00 Intake & Output 01/28/20 01/29/20 01/29/20 18:59 06:59 18:59 Intake Total 120 1460 Balance 120 1460 Weight 100 kg Intake: Intake, IV Titration 800 Amount Sodium Chloride 0.9% 1, 800 000 ml @ 100 mls/hr IV . Q10H [facility] Rx#:[id number] Oral 120 660 Other: # Voids 2 2 4 - Exam Physical Exam: Revealed 59-year-old female in no distress. Head: Atraumatic, normocephalic. HEENT:[Neck is supple.] [No neck masses.] [No thyromegaly.] [No JVD.] Chest: [Symmetrical chest expansion, minimal fine crackles at the bases. No rhonchi and no wheezes. Cardiac Exam: [Normal S1 and S2, no S3 gallop, no murmur.] Abdomen: [Soft, nontender, no megaly, no rebound, no guarding, normal bowel sounds.] Extremities: [No clubbing, no edema, no cyanosis.] Neurological Exam: [No focal neurologic deficit.] Alert oriented 3. Psychiatric: Normal mood affect and normal mental status examination. Skin: No rashes. - Labs CBC & Chem 7: 01/27/20 16:21 01/27/20 16:21 Labs: Abnormal Lab Results - Last 24 Hours (Table) 01/29/20 Range/Units 07:07 C-Reactive Protein 31.9 H (<10.0) mg/L Assessment and Plan Assessment: Impression: Abnormal CT of the chest suggestive of possible covid 19 pneumonitis with underlying interstitial lung disease. Chest pain, likely cardiac in nature however that is being addressed by cardiology on consultation. Patient may eventually require further cardiac workup Abnormal EKG suggestive of underlying coronary artery disease and ischemic changes. Chronic shortness of breath with abnormal CT of the chest, patient may have interstitial lung disease, and that is to be evaluated on outpatient basis. Recommendation: Patient could be switched to oral antibiotics. Cardiology to evaluate and clear for discharge if possible. Patient can see me on outpatient basis for follow-up on her abnormal CT of the chest. Still awaiting her PCR for roman virus which is not available yet. We will continue to follow. Time with Patient: Less than 30
--- NOTE | 2020-01-29 14:43 | P.PN ---
Subjective Progress Note Date: 01/29/20 History of present illness: This is a 59-year-old female with past medical history of hypertensi on, hypothyroidism. Patient presented with shortness of breath cough and chest discomfort that started while she was at home. Chest was tightness. EKG showed was a sinus rhythm with anterior lateral ST-T wave changes. CAT scan of the chest was negative for pulmonary embolism but did show multifocal groundglass opacities consistent with cold.. 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 Troponins were negative on 3 draws. Echocardiogram reveals EF of greater than 55%, mild mitral regurgitation, mild tricuspid regurgitation. Patient denies chest pain. Physical examination: Limited due to Covid 19 isolation Gen: This is a 59-year-old female. Patient is resting in bed and ap pears to be comfortable and in no acute distress. VS: Afebrile, heart rate 72, blood pressure 138/69, pulse ox 96% on 2 L nasal cannula. HEENT: Head is atraumatic, normocephalic. LUNGS: No accessory muscle usage No intercostal retractions. NEUROLOGICAL: Patient is awake, alert and oriented x3. Assessment: Precordial chest pain, acute Dean syndrome ruled out Abnormal EKG Suspected Covid infection Plan: Patient is cleared for discharge from cardiology. Patient may follow-up in the office with Dr. Jimenez. Thank you kindly for this consultation. Nurse practitioner note has been reviewed, I agree with documented findings and plan of care. Patient was seen and examined. Objective - Vital Signs Vital signs: Vital Signs Temp 99.1 F 01/29/20 09:30 Pulse 72 01/29/20 09:30 Resp 18 01/29/20 09:30 BP 138/69 01/29/20 09:30 Pulse Ox 96 01/29/20 09:30 Intake & Output 01/28/20 01/29/20 01/29/20 18:59 06:59 18:59 Intake Total 120 1460 Balance 120 1460 Weight 100 kg Intake: Intake, IV Titration 800 Amount Sodium Chloride 0.9% 1, 800 000 ml @ 100 mls/hr IV . Q10H [facility] Rx#:[id number] Oral 120 660 Other: # Voids 2 2 4 - Labs CBC & Chem 7: 01/27/20 16:21 01/27/20 16:21 Labs: Abnormal Lab Results - Last 24 Hours (Table) 01/29/20 Range/Units 07:07 C-Reactive Protein 31.9 H (<10.0) mg/L
[2020-01-29] MEDS: GABAPENTIN 300 MG CAP PO SCH (21:24)
--- NOTE | 2020-01-30 00:02 | PN ---
PROGRESS NOTE DATE OF SERVICE: 01/29/2020 REASON FOR FOLLOW UP: Fever and question of pneumonia. INTERVAL HISTORY: Patient is currently afebrile. The patient is feeling better. Breathing comfortably. Patient denies having any chest pain. No cough. No nausea, no vomiting. No abdominal pain. No diarrhea. EXAM: Blood pressure 130/65 with a pulse of 71, temperature 99. She is 95% on room air. General description is a middle-aged female up in the bed in no distress. Respiratory system: Unlabored breathing, clear to auscultation anteriorly. Heart S1, S2. Regular rate and rhythm. ABDOMEN: Soft, no tenderness. LABS: CMP down to 1.99 with procalcitonin of 0.6. DIAGNOSTIC IMPRESSION AND PLAN: Patient admitted to the hospital with chest pain. Also has some shortness of breath and a fever with bilateral and concern for possible atypical pneumonia. Romano PCR is pending. Urine for came back negative. Patient currently covered on Zithromax, to continue for another few days to finish a course of therapy. Continue supportive care. MMODL / IJN: [id number] /
--- NOTE | 2020-01-30 00:37 | P.PN ---
Subjective Progress Note Date: 01/29/20 Ms. Hutchins is a 59-year-old female with history of hypertension, vitamin D deficiency, hypothyroidism, osteoarthritis coming in with a chief complaint of chest pain. Patient had EKGs done showing sinus rhythm with no ST-T wave changes. CAT scan of the chest was negative for PE but showed multifocal groundglass opacities consistent with COVID-19. 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 On 01/29/2020 -patient states that her chest pain is much better. Denies having any cough or difficulty breathing. Patient denies having any chest pain or palpitations. No swelling of her lower extremities. On reviewing the vitals patient's T-max is 99.1, respiratory rate of 16, heart rate 71, blood pressure 130 x 65 saturating at 95% on room air. Patient's Covid 19 PCR is still pending. Active Medications Acetaminophen (Acetaminophen Tab 325 Mg Tab) 650 mg PO Q6HR PRN PRN Reason: Mild Pain or Fever > 100.5 Last Admin: 01/27/20 21:54 Dose: 650 mg Documented by: Azithromycin (Azithromycin 500 Mg Tab) 500 mg PO DAILY@1300 [facility] Last Admin: 01/29/20 13:25 Dose: 500 mg Documented by: Cholecalciferol (Cholecalciferol 1,000 Unit Tab) 5,000 unit PO DAILY [facility] Last Admin: 01/29/20 09:35 Dose: 5,000 unit Documented by: Enoxaparin Sodium (Enoxaparin 40 Mg/0.4 Ml Syringe) 40 mg SQ Q24HR [facility] Last Admin: 01/29/20 09:29 Dose: 40 mg Documented by: Gabapentin (Gabapentin 300 Mg Cap) 300 mg PO HS [facility] Last Admin: 01/29/20 21:24 Dose: 300 mg Documented by: Hydrochlorothiazide (Hydrochlorothiazide 25 Mg Tab) 25 mg PO DAILY [facility] Last Admin: 01/29/20 09:28 Dose: 25 mg Documented by: Ibuprofen (Ibuprofen 800 Mg Tab) 800 mg PO Q8H PRN PRN Reason: Pain or Fever > 100.5 Last Admin: 01/29/20 21:23 Dose: 800 mg Documented by: Ketorolac Tromethamine (Ketorolac 15 Mg/Ml 1 Ml Vial) 15 mg IVP Q6HR PRN PRN Reason: Moderate Pain Stop: 01/30/20 17:35 Levothyroxine Sodium (Levothyroxine 50 Mcg Tab) 50 mcg PO 0630 [facility] Last Admin: 01/29/20 06:28 Dose: 50 mcg Documented by: Loratadine (Loratadine 10 Mg Tab) 10 mg PO DAILY [facility] Last Admin: 01/29/20 09:28 Dose: 10 mg Documented by: Magnesium Oxide (Magnesium Oxide 400 Mg Tab) 200 mg PO TID [facility] Last Admin: 01/29/20 21:23 Dose: 200 mg Documented by: Morphine Sulfate (Morphine Sulfate 4 Mg/Ml Syringe) 4 mg IV Q4HR PRN PRN Reason: Severe Pain Multivitamins (Multivitamins, Thera 1 Each Tab) 1 each PO DAILY [facility] Last Admin: 01/29/20 09:29 Dose: 1 each Documented by: Naloxone HCl (Naloxone 0.4 Mg/Ml 1 Ml Vial) 0.2 mg IV Q2M PRN PRN Reason: Opioid Reversal Objective - Vital Signs Vital signs: Vital Signs Temp 99.1 F 01/29/20 09:30 Pulse 72 01/29/20 09:30 Resp 18 01/29/20 09:30 BP 138/69 01/29/20 09:30 Pulse Ox 96 01/29/20 09:30 Intake & Output 01/28/20 01/29/20 01/29/20 18:59 06:59 18:59 Intake Total 120 1460 Balance 120 1460 Weight 100 kg Intake: Intake, IV Titration 800 Amount Sodium Chloride 0.9% 1, 800 000 ml @ 100 mls/hr IV . Q10H [facility] Rx#:[id number] Oral 120 660 Other: # Voids 2 2 4 - Exam hysical examination: GENERAl: sitting on bed, comfortable. EYES: Pupils equal. Conjunctiva normal. HEENT: External appearance of nose and ears normal, oral cavity grossly normal. NECK: JVD not raised; masses not palpable. HEART: First and second heart sounds are normal; no edema. LUNGS: Respiratory rate normal; clear to auscultation. ABDOMEN: Soft, nontender, liver spleen not palpable, no masses palpable. PSYCH: Alert and oriented x3; mood and affect normal. MUSCULAR skeletal: Questionable early findings of OA NEUROLOGICAL: Cranial nerves grossly intact; no facial asymmetry or focal weakness. 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 Patient to be continued on Zithromax 500 mg daily. Continue with Lovenox for DVT prophylaxis. Cardiology, pulmonary, ID following the patient. Further recommendations to follow depending on the progress of the patient.
[2020-01-30] MEDS: LEVOTHYROXINE 50 MCG TAB PO SCH (06:01)
[2020-01-30 06:43] LABS: Basophils % (A) 0 %; Eosinophils % (A) 1 %; HCT 33.5 % (34.0-46.0); HGB 10.9 gm/dL (11.4-16.0); Lymphocytes # (A) 1.6 k/uL (1.0-4.8); Lymphocytes % (A) 35 %; MCH 29.9 pg (25.0-35.0); MCHC 32.6 g/dL (31.0-37.0); MCV 91.8 fL (80.0-100.0); Mean Platelet Volume 6.7; Monocytes # (A) 0.3 k/uL (0-1.0); Monocytes % (A) 7 %; Neutrophils # (A) 2.5 k/uL (1.3-7.7); Neutrophils % (A) 55 %; Platelet Count 155 k/uL (150-450); RBC 3.65 m/uL (3.80-5.40); RDW 13.1 % (11.5-15.5); WBC 4.5 k/uL (3.8-10.6)
[2020-01-30] MEDS: hydroCHLOROthiazide 25 MG TAB PO SCH (08:30)
[2020-01-30] MEDS: ENOXAPARIN 40 MG/0.4 ML SYRINGE SQ SCH (08:30)
[2020-01-30] MEDS: CHOLECALCIFEROL 1,000 UNIT TAB PO SCH (08:30)
[2020-01-30] MEDS: MULTIVITAMINS, THERA 1 EACH TAB PO SCH (08:31)
[2020-01-30] MEDS: LORATADINE 10 MG TAB PO SCH (08:31)
[2020-01-30] MEDS: MAGNESIUM OXIDE 400 MG TAB PO SCH (08:31)
[2020-01-30] MEDS: IBUPROFEN 800 MG TAB PO PRN (08:40)
[2020-01-30 09:21] LABS: Ferritin 237.3 ng/mL (10.0-291.0)
[2020-01-30 09:35] LABS: African American GFR (CKD) 94.9 (60.0-200.0); Albumin 3.4 g/dL (3.80-4.90); Albumin/Globulin Ratio 1.7 (1.60-3.17); Anion Gap 8.1 mmol/L (4.00-12.00); BUN/Creat Ratio 21.25 Ratio (12.00-20.00); Calcium 8.2 mg/dL (8.7-10.3); Carbon Dioxide 34.9 mmol/L (21.6-31.8); Magnesium 1.7 mg/dL (1.5-2.4); Non-African American GFR(CKD) 81.8 (60.0-200.0); Total Bilirubin 0.5 mg/dL (0.2-1.2); Total Protein 5.4 g/dL (6.2-8.2)
[2020-01-30] MEDS ORDERED: Potassium Replacement Protocol 1 EACH MISC MISCELLANE PRN (11:08)
[2020-01-30] MEDS: POTASSIUM CHLORIDE ER 20 MEQ TAB.ER PO SCH ×3 (11:33→12:55)
--- NOTE | 2020-01-30 11:42 | P.DS ---
Providers Date of admission: 01/27/20 17:49 Expected date of discharge: 01/30/20 Attending physician: Christopher Burleson Consults: 01/27/20 17:33 Consult Physician Stat Consulting Provider: Tiago Nava Consult Reason/Comments: chest pain, unstable angina, EKG changes Do you want consulting provider notified?: Yes 01/27/20 17:36 Consult Physician Stat Consulting Provider: Roni Sorto Consult Reason/Comments: chest pain, presumed covid infection Do you want consulting provider notified?: Yes, Notify in am 01/27/20 18:35 Consult Physician Stat Consulting Provider: Luisa Waite Consult Reason/Comments: Presumed covid, bilateral infiltrate Do you want consulting provider notified?: Yes, Notify in am [facility] care [facility] [place] Hospital Course: Ms. Hutchins is a 59-year-old female with history of hypertension, vitamin D deficiency, hypothyroidism, osteoarthritis coming in with a chief complaint of chest pain. Patient had EKGs done showing sinus rhythm with no ST-T wave changes. CAT scan of the chest was negative for PE but showed multifocal groundglass opacities consistent with COVID-19. 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 During the hospital stay, patient maintain her saturations above 95 on room air and she had low-grade temps. Her difficulty in breathing is improved. She was evaluated by cardiology, pulmonary, ID. Cardiology cleared the patient for discharge and to follow-up as outpatient. Spoke with Dr. Saucedo today, he cleared her for discharge. On reviewing the labs patient's potassium was on the low side at 3, so supplementation was given. On talking with the patient, she states that she has taken hydrochlorothiazide for 27 years and on and off she is on potassium supplements for that. Her magnesium is at 1.7 so discharging the patient on magnesium supplements. Vital Signs - 8 hr 01/30/20 04:28 Temperature 98.1 F Pulse Rate [ 58 L Pulse Oximetery ] Respiratory 18 Rate Blood Pressure 141/73 [Right Arm] O2 Sat by Pulse 97 Oximetry GENERAl: sitting on bed, comfortable. HEART: First and second heart sounds are normal; no edema. LUNGS: Respiratory rate normal; clear to auscultation. ABDOMEN: Soft, nontender, liver spleen not palpable, no masses palpable. Extremities: No pedal edema. 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 Patient states that she has a underwater roboticist that she follows on a regular basis, and advised follow-up in 1 week. Advised to quarantine for 14 days. Plan - Discharge Summary Discharge Rx Participant: No New Discharge Prescriptions: New Azithromycin [Zithromax] 500 mg PO DAILY@1300 #2 tab Continue Multivitamins, Thera [Multivitamin (formulary)] 1 tab PO DAILY Levothyroxine Sodium [Synthroid] 50 mcg PO DAILY Ibuprofen [Motrin Ib] 800 mg PO Q8H PRN PRN Reason: Pain Or Fever > 100.5 hydroCHLOROthiazide [Hydrodiuril] 25 mg PO DAILY Gabapentin [Neurontin] 300 mg PO HS Cholecalciferol [Vitamin D3 (25 Mcg = 1000 Iu)] 5,000 unit PO DAILY Levocetirizine Dihydrochloride [Xyzal] 5 mg PO DAILY Discharge Medication List Cholecalciferol [Vitamin D3 (25 Mcg = 1000 Iu)] 5,000 unit PO DAILY 01/27/20 [History] Gabapentin [Neurontin] 300 mg PO HS 01/27/20 [History] Ibuprofen [Motrin Ib] 800 mg PO Q8H PRN 01/27/20 [History] Levocetirizine Dihydrochloride [Xyzal] 5 mg PO DAILY 01/27/20 [History] Levothyroxine Sodium [Synthroid] 50 mcg PO DAILY 01/27/20 [History] Multivitamins, Thera [Multivitamin (formulary)] 1 tab PO DAILY 01/27/20 [History] hydroCHLOROthiazide [Hydrodiuril] 25 mg PO DAILY 01/27/20 [History] Azithromycin [Zithromax] 500 mg PO DAILY@1300 #2 tab 01/30/20 [Rx] Follow up Appointment(s)/Referral(s): Roni Sorto MD [STAFF PHYSICIAN] - 4 Weeks (Call to make appointment) Vinh Huizar MD [Primary Care Provider] - 1-2 days Carlos Jimenez MD [STAFF PHYSICIAN] - 2 Weeks (Call to make appointment plea se)
[2020-01-30 12:03] VITALS: BP 146/69; PULSE 67; RESP 16; TEMP 97.8
[2020-01-30] MEDS: AZITHROMYCIN 500 MG TAB PO SCH (12:11)
--- NOTE | 2020-01-30 13:39 | P.PN ---
Subjective Progress Note Date: 01/30/20 Principal diagnosis: Substernal chest discomfort This is a 59-year-old female primarily a patient of Dr. 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 Patient is known to have history of chronic shortness of breath since February, and previous workup has been basically unremarkable. No previous CT of the chest done in the past, patient developed yesterday symptoms of substernal chest discomfort, she was also complaining of shortness of breath slightly worse compared to baseline. While at work, patient had an EKG, and it showed sinus rhythm with anterolateral ST and T wave changes. Dr. Leal was concerned about her abnormal EKG, and she was sent to [facility] for further evaluation. Indeed her EKG is abnormal, and CT of the chest showed no evidence of pulmonary embolism but it did show multifocal groundglass opacities, and fibrotic changes noted at the bases of her lungs bilaterally. Considering the multifocal groundglass opacities, the possibility of Covid 19 pneumonitis was raised, and the patient was admitted, being tested for roman virus pneumonitis. PCR is pending. Patient was noted to have relatively normal CBC. Lymphocytes were normal. Platelets were on the lower end of normal. Basic metabolic profile was normal. Her LDH was noted to be elevated at 850 and C-reactive protein 39.8. Troponins were negative. Pro- calcitonin level was basically normal 0.10 not suggestive of bacterial pneumonia. Considering her abnormal CT of the chest, I was asked to see this patient on consultation. Patient was reevaluated today on 01/29/20, patient is feeling much better today, denies any cough no wheezing no shortness of breath no chest pain. Her PCR for roman virus is pending. Clinically however the patient is feeling great, relatively asymptomatic, and wondering if she could be discharged home. From my perspective the patient could be discharged home on oral antibiotics, and follow up with her primary care physician. However the patient will need to be cleared for discharge by cardiology since her presentation was mostly a cardiac presentation than a pulmonary presentation. The patient was seen today 01/30/2020 in follow-up on the regular medical floor. She is currently sitting up the bedside. Awake and alert in no acute distress. No recurrent chest discomfort. No worsening shortness of breath, cough or congestion. No fever chills. Maintaining O2 saturation in the 90s on room air. She's afebrile. Hemodynamically stable. Covid 19 screen still pending. Objective - Vital Signs Vital signs: Vital Signs Temp 97.8 F 01/30/20 12:02 Pulse 67 01/30/20 12:02 Resp 16 01/30/20 12:02 BP 146/69 01/30/20 12:02 Pulse Ox 93 L 01/30/20 12:02 Intake & Output 01/29/20 01/30/20 01/30/20 18:59 06:59 18:59 Intake Total 2518 120 Output Total 240 Balance 2278 120 Intake: Intake, IV Titration 1300 Amount Sodium Chloride 0.9% 1, 1300 000 ml @ 100 mls/hr IV . Q10H [facility] Rx#:[id number] Oral 1218 120 Output: Urine 240 Other: Voiding Method Toilet Toilet # Voids 3 1 - Exam GENERAL EXAM: Alert, active, very pleasant 59-year-old female patient, on room air, comfortable in no apparent distress. HEAD: Normocephalic. EYES: Normal reaction of pupils, equal size. NOSE: Clear with pink turbinates. THROAT: No erythema or exudates. NECK: No masses, no JVD. CHEST: No chest wall deformity. LUNGS: Equal air entry with no crackles, wheeze, rhonchi or dullness. CVS: S1 and S2 normal with no audible murmur, regular rhythm. ABDOMEN: No hepatosplenomegaly, normal bowel sounds, no guarding or rigidity. SPINE: No scoliosis or deformity SKIN: No rashes CENTRAL NERVOUS SYSTEM: No focal deficits, tone is normal in all 4 extremities. EXTREMITIES: There is no peripheral edema. No clubbing, no cyanosis. P eripheral pulses are intact. - Labs CBC & Chem 7: 01/30/20 06:07 01/30/20 06:07 Labs: Abnormal Lab Results - Last 24 Hours (Table) 01/30/20 01/30/20 Range/Units 06:07 06:07 RBC 3.65 L (3.80-5.40) m/uL Hgb 10.9 L (11.4-16.0) gm/dL Hct 33.5 L (34.0-46.0) % Sodium 147 H (135-145) mmol/L Potassium 3.0 L (3.5-5.5) mmol/L Carbon Dioxide 34.9 H (21.6-31.8) mmol/L BUN/Creatinine Ratio 21.25 H (12.00-20.00) Ratio Calcium 8.2 L (8.7-10.3) mg/dL Total Protein 5.4 L (6.2-8.2) g/dL Albumin 3.40 L (3.80-4.90) g/dL Assessment and Plan Assessment: Abnormal CT of the chest suggestive of possible covid 19 pneumonitis with unde rlying interstitial lung disease. Chest pain, likely cardiac in nature however that is being addressed by cardiology on consultation. Patient may eventually require further cardiac workup Abnormal EKG suggestive of underlying coronary artery disease and ischemic changes. Chronic shortness of breath with abnormal CT of the chest, patient may have interstitial lung disease, and that is to be evaluated on outpatient basis. Plan: The patient is seen and evaluated by Dr. Macario Schuler screen pending, continue home isolation Cleared for discharge from the pulmonary standpoint Follow-up with him in the outpatient setting regarding possible pulmonary fibrosis I, the cosigning physician, performed a history & physical examination of the patient. Lungs sounds are clear. Maintaining good O2 saturations in the 90s on room air. I discussed the assessment and plan of care with my nurse practitioner, Vero Hodge. I attest to the above note as dictated by her.
== END 2020-01-30 13:09 | disposition home or self-care (01) | DRG 177 ==
LOC: EC 15:55 → 3SCARD 17:49 → 6NMEDSUR 01-29 18:27
PROVIDERS: ADMIT Hospitalist; ATTEND Hospitalist
DX: U07.1 COVID-19 (principal); J12.89 Other viral pneumonia; R07.89 Other chest pain; E03.9 Hypothyroidism, unspecified; E66.01 Morbid (severe) obesity due to excess calories; E55.9 Vitamin D deficiency, unspecified; I10 Essential (primary) hypertension; N95.9 Unspecified menopausal and perimenopausal disorder; M19.91 Primary osteoarthritis, unspecified site; R94.31 Abnormal electrocardiogram [ECG] [EKG]; Z68.36 Body mass index [BMI] 36.0-36.9, adult; Z79.890 Hormone replacement therapy; Z79.899 Other long term (current) drug therapy; Z87.01 Personal history of pneumonia (recurrent); Z98.1 Arthrodesis status; Z96.659 Presence of unspecified artificial knee joint; Z87.728 Personal history of other specified (corrected) congenital malformations of nervous system and sense organs; Z90.49 Acquired absence of other specified parts of digestive tract; Z87.19 Personal history of other diseases of the digestive system; Z98.890 Other specified postprocedural states; Z98.891 History of uterine scar from previous surgery; Z87.442 Personal history of urinary calculi; Z90.710 Acquired absence of both cervix and uterus; Z87.42 Personal history of other diseases of the female genital tract; Z86.69 Personal history of other diseases of the nervous system and sense organs; Z87.448 Personal history of other diseases of urinary system; Z87.39 Personal history of other diseases of the musculoskeletal system and connective tissue; Z90.89 Acquired absence of other organs; Z88.5 Allergy status to narcotic agent; Z88.8 Allergy status to other drugs, medicaments and biological substances; Z88.6 Allergy status to analgesic agent; Z88.1 Allergy status to other antibiotic agents; Z91.041 Radiographic dye allergy status; Z82.5 Family history of asthma and other chronic lower respiratory diseases; Z80.0 Family history of malignant neoplasm of digestive organs; Z80.1 Family history of malignant neoplasm of trachea, bronchus and lung; Z82.49 Family history of ischemic heart disease and other diseases of the circulatory system; Z82.61 Family history of arthritis; Z81.8 Family history of other mental and behavioral disorders
CPT/HCPCS: 36415; 71045; 71275; 80053; 82150; 82728; 83605; 83615; 83735; 83880; 84145; 84484; 85025; 85379; 85610; 85730; 86140; 87449; 93005; 93306; 96361; 96365; 96375; 99285

== ENCOUNTER → 2020-03-03 | Outpatient (CLI) | payer BC ==
--- NOTE | 2020-03-04 20:13 | CT ---
EXAMINATION TYPE: CT chest wo con DATE OF EXAM: 03/03/2020 COMPARISON: 01/27/2020. HISTORY: Dyspnea. History of covid x1 month ago. CT DLP: 1025.8 mGycm. Automated Exposure Control for Dose Reduction was Utilized. TECHNIQUE: CT scan of the thorax is performed without IV contrast. FINDINGS: LUNGS: There are decreased bilateral patchy ground glass opacities, with minimal residual, predominan tly at the lung bases. No new pulmonary opacity or consolidation. There is no pleural effusion or pn eumothorax seen. The tracheobronchial tree is patent. No significant air trapping on the prone views . No evidence of interstitial lung disease. MEDIASTINUM: Lack of IV contrast is noted to limit evaluation for mediastinal and especially hilar ad enopathy. There are scattered few small to borderline-enlarged mediastinal lymph nodes. No cardiome panda or pericardial effusion is seen. OTHER: No additional significant abnormality is seen. IMPRESSION: Resolving pneumonia with near complete resolution of infiltrates.
== END | disposition home or self-care (01) ==
LOC: RADCTMAIN 12:41
PROVIDERS: ATTEND Internal Medicine
DX: J18.9 Pneumonia, unspecified organism (principal)
CPT/HCPCS: 71250

== ENCOUNTER → 2020-04-04 | Outpatient (CLI) | payer BC | END | disposition home or self-care (01) | LOC: CPPFTMAIN 07:34 | PROVIDERS: ATTEND Internal Medicine | DX: R06.09 Other forms of dyspnea (principal) | CPT/HCPCS: 94060; 94726; 94729 ==

== ENCOUNTER → 2020-07-31 | Outpatient (CLI) | payer BC ==
[2020-07-31 07:52] LABS: Basophils % (A) 0 %; Eosinophils # (A) 0.1 k/uL (0-0.7); Eosinophils % (A) 2 %; HCT 37.6 % (34.0-46.0); HGB 12.4 gm/dL (11.4-16.0); Lymphocytes # (A) 1.8 k/uL (1.0-4.8); Lymphocytes % (A) 25 %; MCH 30.6 pg (25.0-35.0); MCHC 33.1 g/dL (31.0-37.0); MCV 92.5 fL (80.0-100.0); Mean Platelet Volume 6.6; Monocytes # (A) 0.3 k/uL (0-1.0); Monocytes % (A) 4 %; Neutrophils # (A) 4.9 k/uL (1.3-7.7); Neutrophils % (A) 67 %; Platelet Count 212 k/uL (150-450); RBC 4.06 m/uL (3.80-5.40); RDW 13.1 % (11.5-15.5); WBC 7.3 k/uL (3.8-10.6)
[2020-07-31 08:14] LABS: Appearance,Urine Cloudy (Clear); Bacteria,Urine Many /hpf; Bilirubin,Urine Negative (Negative); Blood,Urine Negative (Negative); Color,Urine Yellow; Glucose,Urine (UA) Negative (Negative); Ketones,Urine Negative (Negative); Leukocyte Esterase,Urine Moderate (Negative); Mucus,Urine Moderate /hpf; Nitrite,Urine Negative (Negative); Protein,Urine Trace (Negative); RBC,Urine 6 /hpf (0-5); Specific Gravity,Urine 1.025 (1.001-1.035); Squamous Epithelial Cell,Urine 7 /hpf (0-4); Urobilinogen,Urine <2.0 mg/dL (<2.0); WBC,Urine 58 /hpf (0-5)
[2020-07-31 08:16] LABS: Albumin 4.3 g/dL (3.5-5.0); Calcium 9.5 mg/dL (8.4-10.2); Potassium 4.2 mmol/L (3.5-5.1); Total Bilirubin 0.8 mg/dL (0.2-1.3); Total Protein 7.1 g/dL (6.3-8.2)
== END | disposition home or self-care (01) ==
LOC: LABPAT 07:01
PROVIDERS: ATTEND Urology
DX: Z01.812 Encounter for preprocedural laboratory examination (principal); N20.1 Calculus of ureter; R31.29 Other microscopic hematuria
CPT/HCPCS: 36415; 80053; 81001; 85025; 87086

== ENCOUNTER → 2020-08-04 | Day surgery (SDC) | payer BC ==
[2020-08-01 09:49] VITALS: BMI 39.6
--- NOTE | 2020-08-03 19:39 | P.GSHP ---
History of Present Illness H&P Date: 08/03/20 59 yo female with a history of stones. recently came to the office wondering whether she was passing a stone She does have a history of a bad back sHe was having right mid back pain. A kub was obtained identifying right renal stones and possible a large proximal left ureteral stone A ct scan was obtained identfying an 8 mm left proximal ureteral stone with significant chronic hydronephrosis. SHe comes for left ureteroscopy with laser lithotripsy with stent plcacement. - Constitutional Constitutional: Denies chills, Denies fever - EENT Eyes: denies blurred vision, denies pain Ears, nose, mouth and throat: Denies headache, Denies sore throat - Cardiovascular Cardiovascular: Denies chest pain, Denies shortness of breath - Respiratory Respiratory: Denies cough, Denies 7 - Gastrointestinal Gastrointestinal: Denies abdominal pain, Denies diarrhea, Denies nausea, Denies vomiting - Genitourinary (Female) Genitourinary: Denies dysuria, Denies hematuria - Genitourinary (Male) Genitourinary: Denies dysuria, Denies hematuria - Musculoskeletal Musculoskeletal: Denies myalgias - Integumentary Integumentary: Denies pruritus, Denies rash - Neurological Neurological: Denies numbness, Denies weakness - Psychiatric Psychiatric: Denies anxiety, Denies depression - Endocrine Endocrine: Denies fatigue, Denies weight change Past Medical History Past Medical History: Hypertension, Osteoarthritis (OA), Thyroid Disorder Additional Past Medical History / Comment(s): Kidney stones, Hypertension during , vit. D deficiency History of Any Multi-Drug Resistant Organisms: None Reported Past Surgical History: Adenoidectomy, Appendectomy, Back Surgery, Bladder Surgery, Cholecystectomy, Ear Surgery, Hysterectomy, Joint Replacement, Orthopedic Surgery, Tonsillectomy Additional Past Surgical History / Comment(s): RT PARTIAL Knee replacement (2019), fusion of c5-c7,chiari malformation repair (2007), two c-sections, cystoctopy, lithotripsy, jaw surgery, BILAT CATARACTS REMOVED WTIH LENS IMPLANTS Past Anesthesia/Blood Transfusion Reactions: Previous Problems w/ Anesthesia, Postoperative Nausea & Vomiting (PONV) Additional Past Anesthesia/Blood Transfusion Reaction / Comment(s): Pt states she vomited for 12 hours after anesthesia Smoking Status: Never smoker - Past Family History Father Family Medical History: Cancer, COPD Additional Family Medical History / Comment(s): pancreatic cancer Mother Family Medical History: Cancer Additional Family Medical History / Comment(s): Lung cancer Brother(s) Family Medical History: Hypertension, Osteoarthritis (OA) Sister(s) Family Medical History: Mitral Valve Prolapse (MVP), Osteoarthritis (OA) Additional Family Medical History / Comment(s): manic depression Medications and Allergies Home Medications Medication Instructions Recorded Confirmed Type Cholecalciferol [Vitamin D3 (25 5,000 unit PO DAILY 01/27/20 08/01/20 History Mcg = 1000 Iu)] Levothyroxine Sodium [Synthroid] 50 mcg PO DAILY 01/27/20 08/01/20 History Multivitamins, Thera [Multivitamin 1 tab PO DAILY 01/27/20 08/01/20 History (formulary)] Acetaminophen [Tylenol Extra 1,000 mg PO BID 08/01/20 08/01/20 History Strength] Diclofenac Sodium [Voltaren] 75 mg PO BID 08/01/20 08/01/20 History Gabapentin 600 mg PO HS 08/01/20 08/01/20 History Liraglutide [Saxenda] 1.2 mg SQ Q2D 08/01/20 08/01/20 History buPROPion HCL [Wellbutrin SR] 150 mg PO DAILY 08/01/20 08/01/20 History Allergies Allergy/AdvReac Type Severity Reaction Status Date / Time acetaminophen [From Lortab] Allergy Swelling Verified 08/01/20 09:49 hydrocodone [From Vicodin] Allergy Swelling Verified 08/01/20 09:49 hydromorphone [From Dilaudid] Allergy Swelling Verified 08/01/20 09:49 Iodinated Contrast Media Allergy Anaphylaxis Verified 08/01/20 09:49 nitrofurantoin Allergy HEPATITIS Verified 08/01/20 09:49 [From Macrobid] LIKE REACTION propoxyphene Allergy Swelling Verified 08/01/20 09:49 [From Darvocet-N] tramadol [From Ultracet] Allergy Swelling Verified 08/01/20 09:49 celecoxib [From Celebrex] AdvReac Hallucinati Verified 08/01/20 09:49 ons methyldopa [From Aldomet] AdvReac "COATED MY Verified 08/01/20 09:49 PLATELETS" tuberculin, purified protein AdvReac Rash/Hives Verified 08/01/20 09:49 deriva Surgical - Exam - General well developed, well nourished, no distress - Eyes PERRL - ENT no hearing loss - Neck trachea midline - Respiratory normal respiratory effort - Cardiovascular Rhythm: regular - Abdomen Abdomen: soft, non tender - Integumentary no rash, no growths - Neurologic normal coordination, normal sensation - Musculoskeletal normal gait, normal posture - Psychiatric oriented to time, oriented to person, oriented to place, speech is normal, memory intact Results - Imaging CT scan - abdomen: report reviewed, image reviewed CT scan - pelvis: report reviewed, image reviewed Assessment and Plan Assessment: Impression: Left ureteral stone with obstruction Plan: left ureteroscopy with laser lithotripsy and probable stent placement
[~2020-08-04] MED LIST: DEXAMETHASONE SOD PHOSPHATE 4 MG/ML 1 ML VIAL IV ONE; IOPAMIDOL-370 50ML BTL MISCELLANE ONE; LACTATED RINGERS 1,000 ML IV SCH; LIDOCAINE 1% (10MG/ML) FOR IV START INTRADERMA PRN; LIDOCAINE 1% INJ 10MG/ML (20 ML MDV) ONE; MIDAZOLAM 2 MG/2 ML VIAL IV PRN; MIDAZOLAM 2 MG/2 ML VIAL ONE; ONDANSETRON 4 MG/2 ML VIAL IVP ONE; PROPOFOL 10 MG/ML 20 ML VIAL IV ONE; SCOPOLAMINE 1.5MG/72HR PATCH TRANSDERM ONE; SUCCINYLCHOLINE CHLORIDE 100 MG/5 ML SYR IV ONE; fentaNYL (PF) 50 MCG/ML 2 ML AMP ONE
--- NOTE | 2020-08-04 10:52 | XR ---
EXAMINATION TYPE: XR KUB DATE OF EXAM: 08/04/2020 HISTORY: Pain Comparison: None.Single KUB is submitted for interpretation. Findings: Right renal calculi: None Visualized. Right ureteral calculi: None Visualized. Left renal calculi: 3 to 4 mm calculus overlying the lower pole of the left kidney. Left ureteral calculi: 9 mm calculus noted proximal left ureter at the L4 level. No additional calcu li seen with certainty. Pelvic calcifications: None Visualized. Bowel gas pattern is unremarkable. No free air. No mass effects. IMPRESSION: 1. As above
[2020-08-04 14:53] VITALS: TEMP 97
--- NOTE | 2020-08-04 14:54 | P.OP ---
Date of Procedure: 08/04/20 Preoperative Diagnosis: Left ureteral and renal calculi. Right flank pain Postoperative Diagnosis: Same Procedure(s) Performed: Cystoscopy, right retrograde pyelogram, left ureteroscopy with laser lithotripsy, left renoscopy with laser lithotripsy, placement of [id number] stent Anesthesia: DREAD Surgeon: Chet Calloway Estimated Blood Loss (ml): 0 Pathology: other (Stone) Condition: stable (Stone) Disposition: PACU Indications for Procedure: The patient is 59. She has a known history of stones. She presented to the office with right flank pain. A computed tomography scan did not identify any evidence of stone other than medullary sponge kidney and the right but there was a 9 mm UPJ stone with chronic hydronephrosis as well as a 3 mm left lower pole stone. Right retrograde pyelogram left ureteroscopy laser lithotripsy and stent placement Description of Procedure: Patient brought to the operating suite. She is given general anesthesia. She's placed lithotomy position with sterile prep and drape. Cystoscopy Foroblique lens and 21-Estonian sheath identifies a normal urethra. Ureteral orifices are normal. Within a cone-tipped catheter right retrograde pyelogram performed ureters of normal course and caliber without evidence of obstruction. I then pass an 035 wire up the left ureter into the renal pelvis by the obstructing ureteral stone. It is somewhat impacted. Over the wires passed a 06-47-[id number] reentry sheath. I removed the inner sheath and passed the flexible ureteroscope up to the stone. The stone was broken into tiny fragments with the 200 laser probe and salgado of energy. I then followed the stone fragments in the renal pelvis and break the more. I move in the left lower pole calyx and break that stone. I then through the ureteroscope passed an 035 wire up into the kidney. Over the wires passed a 6 x 24 double-J catheter that coils in the renal pelvis and the bladder the bladder strain the patient's awake and returned recovery in good condition. Tell procedure well be discharged home upon recovery. She'll follow in one week for stent removal.
--- NOTE | 2020-08-04 15:17 | FL ---
EXAMINATION TYPE: FL urography retrograde DATE OF EXAM: 08/04/2020 COMPARISON: NONE HISTORY: Rt retrograde with left side lithotrypsy TECHNIQUE: Fluoroscopy. FINDINGS: Fluoroscopic guidance was provided. 12sec fluoro time IMPRESSION: As Above.
[2020-08-04 15:29] VITALS: RESP 17
[2020-08-04 15:40] VITALS: BP 144/68; PULSE 74
== END | disposition home or self-care (01) ==
LOC: OR 10:19
PROVIDERS: ATTEND Urology
DX: N13.2 Hydronephrosis with renal and ureteral calculous obstruction (principal); I10 Essential (primary) hypertension; M19.90 Unspecified osteoarthritis, unspecified site; E07.9 Disorder of thyroid, unspecified; F32.9 Major depressive disorder, single episode, unspecified; Z87.442 Personal history of urinary calculi; E55.9 Vitamin D deficiency, unspecified; Z90.89 Acquired absence of other organs; Z90.49 Acquired absence of other specified parts of digestive tract; Z98.890 Other specified postprocedural states; Z90.710 Acquired absence of both cervix and uterus; Z96.651 Presence of right artificial knee joint; Z98.1 Arthrodesis status; Z98.891 History of uterine scar from previous surgery; Z98.42 Cataract extraction status, left eye; Z98.41 Cataract extraction status, right eye; Z96.1 Presence of intraocular lens; Z80.0 Family history of malignant neoplasm of digestive organs; Z82.5 Family history of asthma and other chronic lower respiratory diseases; Z80.1 Family history of malignant neoplasm of trachea, bronchus and lung; Z82.49 Family history of ischemic heart disease and other diseases of the circulatory system; Z82.61 Family history of arthritis; Z84.89 Family history of other specified conditions; Z81.8 Family history of other mental and behavioral disorders; Z79.890 Hormone replacement therapy; Z79.899 Other long term (current) drug therapy; Z88.5 Allergy status to narcotic agent; Z88.8 Allergy status to other drugs, medicaments and biological substances; Z88.6 Allergy status to analgesic agent; Z91.041 Radiographic dye allergy status
CPT/HCPCS: 82365; 74420; 74018; 52356; C2625; C1758; C1769; J2250; J1100; J2405; J0690; J2001; J3010; J0330; J2704; Q9967

== ENCOUNTER → 2022-08-02 | Outpatient (CLI) | payer BC ==
--- NOTE | 2022-08-02 08:24 | CT ---
EXAMINATION TYPE: CT abdomen pelvis wo con DATE OF EXAM: 08/02/2022 COMPARISON: None HISTORY: 61-year-old female R31.9, hematuria, Right sided flank pain CT DLP: 1964.8 mGycm. Automated exposure control for dose reduction was used. TECHNIQUE: Contiguous axial scanning of the abdomen and pelvis without IV contrast. Coronal and sagit oumar reconstructions performed. FINDINGS: Heart upper limits of normal in size. No pericardial effusion. Lung bases clear without pleural effus ion. Liver mildly enlarged 18.5 cm with diminished attenuation. Cholecystectomy clips. Adrenal glands, spleen, and pancreas show no gross abnormality by noncontrast CT. Scattered nonenlarged and some borderline to mildly enlarged mesenteric lymph nodes in the left side of the abdomen measuring up to 1.1 cm, probably reactive/post inflammatory. No dilated small bowel, free fluid, or free air. Surgical material right lower quadrant from prior appendectomy. There is mild overall stool burden. N o pericolonic inflammatory change. There is mild left-sided hydronephrosis with a 4 mm stone in the proximal left ureter, axial image 72 and coronal image 54. Additional 5 mm stone within the left renal calyceal system. Additional bilate ral nephrolithiasis is present. Largest at the left lower pole measuring 1.2 cm. Largest on the right measuring up to 7 mm. There also appears to be some underlying medullary nephrocalcinosis. Bladder incompletely distended. Uterus surgically absent. Neither ovary clearly seen. No abnormal flu id collection in the pelvis or pelvic adenopathy. Bones: Status post L4-L5 posterior and interbody fusion. Moderate degenerative disc disease lower tho racic spine. IMPRESSION: 1. A 4 mm stone in the proximal left ureter with mild obstructive uropathy. 2. Additional bilateral nephrolithiasis. In particular, there is a 5 mm stone in the left renal macie ceal system which may pass in the near future. 3. Some underlying bilateral medullary nephrocalcinosis. Some differential considerations include hy perparathyroidism, medullary sponge kidney, RTA type I, hypervitaminosis D, sarcoidosis, hyperthyroid ism/hypothyroidism, or other pathologic hypercalcemic/hypercalciuric states. 4. Hepatomegaly at 18.5 cm with moderate hepatic steatosis.
== END | disposition home or self-care (01) ==
LOC: RADCTMAIN 07:42
PROVIDERS: ATTEND Family Medicine
DX: N20.2 Calculus of kidney with calculus of ureter (principal); N28.89 Other specified disorders of kidney and ureter; K76.0 Fatty (change of) liver, not elsewhere classified; R31.9 Hematuria, unspecified
CPT/HCPCS: 74176

== ENCOUNTER → 2022-08-22 | Outpatient (CLI) | payer BC ==
[2022-08-23 02:09] LABS: African American GFR (CKD) 76.8 (60.0-200.0); Anion Gap 10.9 mmol/L (10.00-18.00); BUN/Creat Ratio 21.37 Ratio (12.00-20.00); Calcium 9.6 mg/dL (8.7-10.3); Carbon Dioxide 25.6 mmol/L (20.0-27.5); Non-African American GFR(CKD) 66.3 (60.0-200.0); Potassium 4.2 mmol/L (3.5-5.5)
[2022-08-23 02:16] LABS: HCT 39.2 % (37.2-46.3); MCH 29.1 pg (27.0-32.0); MCHC 30.6 g/dL (32.0-37.0); MCV 95.1 fL (80.0-97.0); Mean Platelet Volume 9.5 fL (9.5-12.2); NRBC Per 100 WBC 0 /100 WBCS (0.0-0.0); Platelet Count 251 X 10*3/uL (140-440); RBC 4.12 X 10*6/uL (4.10-5.20); WBC 10.28 X 10*3/uL (4.50-10.00)
== END | disposition home or self-care (01) ==
LOC: LABPAT 16:14
PROVIDERS: ATTEND Urology
DX: Z01.812 Encounter for preprocedural laboratory examination (principal); N20.0 Calculus of kidney; R31.29 Other microscopic hematuria
CPT/HCPCS: 36415; 80048; 85027; 87086

== ENCOUNTER 2022-08-28 07:10 | Day surgery (SDC) | payer BC ==
[2022-08-26 14:25] VITALS: BMI 43.4
--- NOTE | 2022-08-27 19:31 | P.GSHP ---
History of Present Illness H&P Date: 08/27/22 62 yo female with a history of stones. She recently passed al eft ureteral stone. She has bilateral renal stones. She is having persistent right flank pain., SHe now comes for right ureteroscopy with laser lithotripsy and possible stent placement. - Constitutional Constitutional: Denies chills, Denies fever - EENT Eyes: denies blurred vision, denies pain Ears, nose, mouth and throat: Denies headache, Denies sore throat - Cardiovascular Cardiovascular: Denies chest pain, Denies shortness of breath - Respiratory Respiratory: Denies cough, Denies 7 - Gastrointestinal Gastrointestinal: Denies abdominal pain, Denies diarrhea, Denies nausea, Denies vomiting - Genitourinary (Female) Genitourinary: Denies dysuria, Denies hematuria - Genitourinary (Male) Genitourinary: Denies dysuria, Denies hematuria - Musculoskeletal Musculoskeletal: Denies myalgias - Integumentary Integumentary: Denies pruritus, Denies rash - Neurological Neurological: Denies numbness, Denies weakness - Psychiatric Psychiatric: Denies anxiety, Denies depression - Endocrine Endocrine: Denies fatigue, Denies weight change Past Medical History Past Medical History: Osteoarthritis (OA), Pneumonia, Thyroid Disorder Additional Past Medical History / Comment(s): Kidney stones, vit. D deficiency,SOB intermittently-breathing tests done-normal History of Any Multi-Drug Resistant Organisms: None Reported Past Surgical History: Adenoidectomy, Appendectomy, Back Surgery, Bladder Surgery, Cholecystectomy, Ear Surgery, Hysterectomy, Orthopedic Surgery, Tonsillectomy Additional Past Surgical History / Comment(s): Knee replacement -revision, fusion of c5-c7,chiari malformation repair (2007), two c-sections, cystoscopy, lithotripsy, jaw surgery,L4 laminectomy/cag,naseem cataracts Past Anesthesia/Blood Transfusion Reactions: Previous Problems w/ Anesthesia, Postoperative Nausea & Vomiting (PONV) Additional Past Anesthesia/Blood Transfusion Reaction / Comment(s): Pt states she vomited for 12 hours after anesthesia,no hx blood transfuion Smoking Status: Never smoker - Past Family History Father Family Medical History: Cancer, COPD Additional Family Medical History / Comment(s): pancreatic and prostate cancer Mother Family Medical History: Cancer, Osteoarthritis (OA) Additional Family Medical History / Comment(s): Lung cancer Brother(s) Family Medical History: Cancer, Hypertension, Osteoarthritis (OA) Additional Family Medical History / Comment(s): prostate Sister(s) Family Medical History: Mitral Valve Prolapse (MVP), Osteoarthritis (OA) Additional Family Medical History / Comment(s): manic depression Medications and Allergies Home Medications Medication Instructions Recorded Confirmed Type Cholecalciferol [Vitamin D3 (25 5,000 unit PO DAILY 01/27/20 08/26/22 History Mcg = 1000 Iu)] Levothyroxine Sodium [Synthroid] 50 mcg PO QAM 01/27/20 08/26/22 History Multivitamins, Thera [Multivitamin 1 tab PO DAILY 01/27/20 08/26/22 History (formulary)] Acetaminophen [Tylenol Extra 1,000 mg PO BID 08/01/20 08/26/22 History Strength] Diclofenac Sodium [Voltaren] 75 mg PO BID 08/01/20 08/26/22 History Loratadine [Claritin] 10 mg PO DAILY 08/26/22 08/26/22 History Allergies Allergy/AdvReac Type Severity Reaction Status Date / Time hydrocodone [From Vicodin] Allergy Swelling Verified 08/26/22 14:14 hydromorphone [From Dilaudid] Allergy Swelling Verified 08/26/22 14:14 Iodinated Contrast Media Allergy Anaphylaxis Verified 08/26/22 14:14 nitrofurantoin Allergy HEPATITIS Verified 08/26/22 14:14 [From Macrobid] LIKE REACTION propoxyphene Allergy Swelling Verified 08/26/22 14:14 [From Darvocet-N] tramadol [From Ultracet] Allergy Swelling Verified 08/26/22 14:14 celecoxib [From Celebrex] AdvReac Hallucinati Verified 08/26/22 14:14 ons methyldopa [From Aldomet] AdvReac "COATED MY Verified 08/26/22 14:14 PLATELETS" tuberculin, purified protein AdvReac Rash/Hives Verified 08/26/22 14:14 deriva Surgical - Exam - General well developed, well nourished, no distress - Eyes normal ocular movement, no icteric - ENT no hearing loss, no congestion - Neck no masses, trachea midline - Respiratory normal respiratory effort, clear to auscultation - Abdomen Abdomen: soft, non tender, no guarding, no rigid, no rebound - Integumentary no rash, no abnormal pigmentation - Neurologic no disoriented, no combative - Psychiatric oriented to time, oriented to person, oriented to place, speech is normal, memory intact Results - Imaging Abdominal x-ray: report reviewed, image reviewed CT scan - abdomen: report reviewed, image reviewed CT scan - pelvis: report reviewed, image reviewed Assessment and Plan Assessment: Impression: right renal stones Plan: right ureteroscopy with laser lithotripsy and possible stent.
[~2022-08-28 07:10] MED LIST changes: +HYDROmorphone 0.5 MG/0.5 ML SYRINGE IVP PRN; -IOPAMIDOL-370 50ML BTL MISCELLANE ONE; -LIDOCAINE 1% INJ 10MG/ML (20 ML MDV) ONE; +METOCLOPRAMIDE 5 MG/ML 2 ML VIAL IVP PRN; -MIDAZOLAM 2 MG/2 ML VIAL IV PRN; -MIDAZOLAM 2 MG/2 ML VIAL ONE; -PROPOFOL 10 MG/ML 20 ML VIAL IV ONE; -SCOPOLAMINE 1.5MG/72HR PATCH TRANSDERM ONE; -SUCCINYLCHOLINE CHLORIDE 100 MG/5 ML SYR IV ONE; +ceFAZolin 3 GM in SODIUM CHLORIDE 0.9% 100 ML IVPB PRN; -fentaNYL (PF) 50 MCG/ML 2 ML AMP ONE
--- NOTE | 2022-08-28 07:33 | XR ---
EXAMINATION TYPE: XR KUB DATE OF EXAM: 08/28/2022 COMPARISON: KUB radiograph 08/04/2020, CT abdomen and pelvis 08/02/2022 HISTORY: N20.0 TECHNIQUE: Supine KUB view was obtained with 2 radiographs. FINDINGS: Small bowel demonstrates no evidence for dilatation or air fluid levels. Gas and fecal material is seen in non-distended colon. Cholecystectomy clips in the right upper quadrant. Right superior pole renal calculus measuring up to 3 mm. Left lower pole renal calculus measuring up to 9 mm. Both of these correlate to recent CT findings. Possible 3 mm calcification in the proximal l eft ureter. The lung bases are clear. The osseous structures are intact. Mild dextrocurvature of the lumbar spine. Fusion hardware involvin g L4-L5 with disc spacer. IMPRESSION: Bilateral renal calculi. Possible 3 mm calcification in the left proximal ureter.
[2022-08-28] MEDS: LACTATED RINGERS 1,000 ML IV SCH ×2 (08:21→09:06)
[2022-08-28] MEDS ORDERED: ROCURONIUM 10 MG/ML (5 ML VIAL) IV ONE (09:02)
[2022-08-28] MEDS ORDERED: PROPOFOL 10 MG/ML 20 ML VIAL IV ONE (09:02)
[2022-08-28] MEDS ORDERED: ONDANSETRON 4 MG/2 ML VIAL ONE (09:02)
[2022-08-28] MEDS ORDERED: MIDAZOLAM 2 MG/2 ML VIAL ONE (09:02)
[2022-08-28] MEDS ORDERED: NEOSTIGMINE 1 MG/ML 10 ML VIAL ONE (09:02)
[2022-08-28] MEDS ORDERED: fentaNYL (PF) 50 MCG/ML 2 ML AMP ONE (09:02)
[2022-08-28] MEDS ORDERED: diphenhydrAMINE 50 MG/ML 1 ML VIAL ONE (09:02)
[2022-08-28] MEDS ORDERED: SUGAMMADEX SODIUM 200 MG/2 ML SDV IV ONE (09:02)
[2022-08-28] MEDS ORDERED: LIDOCAINE 2% INJ 20 MG/ML (2 ML VIAL) ONE (09:02)
[2022-08-28] MEDS ORDERED: GLYCOPYRROLATE 0.2 MG/ML 2 ML VIAL ONE (09:02)
[2022-08-28] MEDS ORDERED: IOPAMIDOL-370 100ML BTL MISCELLANE ONE (09:31)
--- NOTE | 2022-08-28 10:07 | P.OP ---
Date of Procedure: 08/28/22 Preoperative Diagnosis: Right renal colic, right renal stones Postoperative Diagnosis: Right renal colic, medullary sponge kidney, right tubular stones Procedure(s) Performed: Cystoscopy, right ureteroscopy, intraoperative nephrostogram, laser lithotripsy to multiple renal tubular stones right Anesthesia: GETA Surgeon: Chet Calloway Estimated Blood Loss (ml): 0 Pathology: none sent Condition: stable Disposition: PACU Indications for Procedure: Patient is 62. She has medullary sponge kidney. She has bilateral renal stones. She has persistent right flank pain. Computed tomography scan and KUB show small stones in the right kidney as well as a left. She comes for right u reteroscopy laser lithotripsy his previous shockwave lithotripsy hasn't helped Description of Procedure: Patient brought operating suite. Given general anesthetic. Placed lithotomy position with a sterile prep and drape. Cystoscopy Foroblique lens and 21- Beninese sheath identifies a normal urethra. Bladder mucosa is unremarkable. Both ureteral orifices are normal. An 035 wires passed up into the right kidney. Over the wires passed 79-64-Pydseh reentry sheath with the inner sheath being removed. Pass a flexible ureteroscope into the collecting system. I do an intraoperative nephrostogram.line the collecting system to make sure I intubate each calyx. I sequentially go through each calyx and finding multiple Shaggy's plaques and tubular stones. With the 272 laser probe I then lasered each papilla opened the papilla into the renal tubules and laser the tiny renal stones and the tubules. I then looked throughout and again the complete right collecting system and see no remaining stones. There is no active bleeding. I do a pullout ureteroscopy the right ureter and see no stones a. The ureteroscope and sheath is removed. The bladder is drained. The patient is awake and returned recovery room good condition Impression successful laser lithotripsy to right tubular stones. We will see if this relieves her of her discomfort. If it doesn't I'll consider doing a left side. Patient tolerated procedure well. Blood loss is minimal.
--- NOTE | 2022-08-28 10:21 | FL ---
Intraoperative/procedural fluoroscopic services were provided for right renal stone. Total fluoroscop y time is 18 seconds with a total of 1 submitted image to PACS. Total DAP 3.8009 Gycm2. Please see t he operative note for further details.
[2022-08-28 10:28] VITALS: TEMP 97.4
[2022-08-28] MEDS: fentaNYL (PF) 50 MCG/ML 2 ML AMP IVP ONE ×2 (10:53→11:12)
[2022-08-28] MEDS ORDERED: KETOROLAC 15 MG/ML 1 ML VIAL ONE (11:36)
[2022-08-28] MEDS ORDERED: KETOROLAC 15 MG/ML 1 ML VIAL IVP STA (11:38)
[2022-08-28 12:31] VITALS: BP 145/78; PULSE 72; RESP 18
== END 2022-08-28 12:54 | disposition home or self-care (01) ==
LOC: OR 07:10
PROVIDERS: ATTEND Urology
DX: N20.0 Calculus of kidney (principal); Q61.5 Medullary cystic kidney; N28.89 Other specified disorders of kidney and ureter; E07.9 Disorder of thyroid, unspecified; M19.90 Unspecified osteoarthritis, unspecified site; J18.9 Pneumonia, unspecified organism; K21.9 Gastro-esophageal reflux disease without esophagitis; Z88.6 Allergy status to analgesic agent; Z98.1 Arthrodesis status; Z98.890 Other specified postprocedural states; Z79.890 Hormone replacement therapy; Z79.1 Long term (current) use of non-steroidal anti-inflammatories (NSAID); Z79.899 Other long term (current) drug therapy; Z88.1 Allergy status to other antibiotic agents; Z88.5 Allergy status to narcotic agent; E66.01 Morbid (severe) obesity due to excess calories; Z68.41 Body mass index [BMI] 40.0-44.9, adult
CPT/HCPCS: 52353; 74018; C1769; J2250; J1200; J1100; J2710; J0690; J2405; J3010; J1885; J2704; Q9967; J2001

== ENCOUNTER → 2022-11-01 | Outpatient (CLI) | payer BC ==
--- NOTE | 2022-11-03 11:09 | CT ---
EXAMINATION TYPE: CT abdomen pelvis wo con DATE OF EXAM: 11/01/2022 COMPARISON: 08/02/2022 HISTORY: flank pain CT DLP: 1329.3 mGycm Examination of the solid and hollow viscera is limited given the lack of contrast. FINDINGS: LUNG BASES: No evidence for nodule. No evidence for infiltrate. LIVER/GB: The gallbladder is unremarkable. No space-occupying hepatic lesion. PANCREAS: No pancreatic mass identified. No inflammatory process seen. SPLEEN: No evidence for splenomegaly. No intrasplenic lesions seen. ADRENALS: No adrenal nodules identified. No evidence for thickening. KIDNEYS: There is a 3 mm calculus mid left ureter resulting in mild left-sided hydronephrosis. There are multiple calculi seen within both kidneys with changes of medullary sponge kidney. Largest calcul us within the lower pole of the left kidney measures 10 mm by 8 mm with an adjacent 7 mm calculus not ed. BOWEL: Appendix has a normal appearance. No evidence of bowel obstruction. No inflammatory process. Lymph nodes: No evidence for adenopathy greater than 1 cm. Abdominal aorta: Atheromatous changes seen. No evidence for aneurysm. Genital organs: No significant abnormality. Other: Postoperative changes of fusion and lumbar spine. IMPRESSION: 1.There is a 3 mm calculus mid left ureter resulting in mild left-sided hydronephrosis. 2. Bilateral nephrolithiasis and medullary sponge kidney changes.
== END | disposition home or self-care (01) ==
LOC: RADCTMAIN 12:05
PROVIDERS: ATTEND Family Medicine
DX: N13.2 Hydronephrosis with renal and ureteral calculous obstruction (principal)
CPT/HCPCS: 74176

== ENCOUNTER → 2024-06-22 | Outpatient (CLI) | payer BC | LOC: CPPFTMAIN 17:00 | PROVIDERS: ATTEND Family Medicine | DX: R06.09 Other forms of dyspnea (principal); Z88.5 Allergy status to narcotic agent; Z88.6 Allergy status to analgesic agent; Z88.2 Allergy status to sulfonamides; Z88.7 Allergy status to serum and vaccine; Z88.8 Allergy status to other drugs, medicaments and biological substances; Z91.041 Radiographic dye allergy status | CPT/HCPCS: 94060; 94726; 94729 ==